=== PATIENT | male | born 1945 | race Caucasian/White ===

== ENCOUNTER 2016-10-26 17:02 | Inpatient (IN) ==
[2016-10-26 18:01] LABS: Basophils % 1.3 %; Eosinophils % 0.8 %; Hematocrit 20.7 % (37.5-50.1); Hemoglobin 6.6 g/dL (12.9-16.9); Immature Granulocytes % 0.2 % (0-4); Lymphocytes % 27.9 %; Mean Corpuscular HGB Conc 31.9 g/dL (31.6-35.5); Mean Corpuscular Hemoglobin 34.9 pg (28.0-33.3); Mean Corpuscular Volume 109.5 fL (83.0-100.0); Mean Platelet Volume 9.7 fL (9.4-12.4); Monocytes % 18.1 %; Platelet Count 101 K/mcL (140-400); Red Blood Count 1.89 M/mcL (4.19-5.50); Red Cell Distribution Width 16.7 % (11.5-14.5); Segmented Neutrophils % 51.7 %
[2016-10-26 18:02] LABS: Basophils # 0.1 K/mcL (0.0-0.2); Lymphocytes # 1.3 K/mcL (0.6-4.6); Monocytes # 0.9 K/mcL (0.0-1.3); Neutrophils # 2.5 K/mcL (1.6-8.9)
[2016-10-26 18:15] LABS: Albumin/Globulin Ratio 0.5 (1.1-2.2); Bilirubin,Total 0.4 mg/dL (0.2-1.2); Calcium 7.8 mg/dL (8.6-10.8); Globulin 3.7 g/dL (2.4-3.5); Total Protein 5.6 g/dL (6.0-8.3)
[2016-10-26 18:16] LABS: Albumin 1.9 g/dL (3.5-5.0)
--- NOTE | 2016-10-26 18:30 | Emergency Department Note ---
Disposition Clinical Impression: Hypokalemia Anemia Qualifiers: Anemia type: other cause Disposition: Home, Self-Care Condition: Good Recheck wound or abnormal lab - General Chief Complaint: ED Recheck/Abnormal Lab/Rx Stated Complaint: needs blood transfusion Time Seen by Provider: 10/26/16 17:21 Source: patient Limitations: no limitations Nursing Notes Reviewed: Yes Vital Signs Reviewed: Yes - History of Present Illness HPI Narrative: Patient presents with complaint of abnormal labs. Patient states that he had dialysis today and was told to come in December [facility] because his blood count was "critically low". Patient denies any symptoms denies shortness breath denies chest pain. Discussed with family at the bedside states that his skin color has been the same for approximate the past month but she feels as been getting worse. Patient states he has been weak but he states he is always weak. - Related Data Home Medications Medication Instructions Recorded Confirmed Amlodipine Besylate 5 mg PO BID 01/10/16 10/26/16 Aspirin [Adult Low Dose Aspirin EC] 81 mg PO Q48H 01/10/16 10/26/16 Calcium Acetate [Phos-LO] 667 mg PO QID 01/10/16 10/26/16 Carvedilol 25 mg PO BID 01/10/16 10/26/16 Citalopram Hydrobromide [Celexa] 40 mg PO DAILY 01/10/16 10/26/16 Finasteride 5 mg PO DAILY 01/10/16 10/26/16 Furosemide 80 mg PO BID 01/10/16 10/26/16 Simvastatin 20 mg PO DAILY 01/10/16 10/26/16 Tamsulosin HCl 0.4 mg PO DAILY 01/10/16 10/26/16 Albuterol Neb [Proventil Neb] 2.5 mg IH QID PRN 10/26/16 10/26/16 Epoetin Brandon [Procrit] 10,000 unit SQ MOWEFR 10/26/16 10/26/16 Guaifenesin [Mucinex] 600 mg PO Q12H 10/26/16 10/26/16 Ipratropium/Albuterol Neb [Duoneb] 3 ml IH Q6HR PRN 10/26/16 10/26/16 Lactose-Reduced Food [Ensure 1 bottle PO TID 10/26/16 10/26/16 Active Clear] Metoclopramide [Reglan] 10 mg PO QIDAC 10/26/16 10/26/16 Omeprazole [PriLOSEC] 20 mg PO BID 10/26/16 10/26/16 Ondansetron HCl [Zofran] 4 mg PO Q6H PRN 10/26/16 10/26/16 Previous Rx's Medication Instructions Recorded Renal Vitamin [Renal Caps Softgel] 1 mg PO DAILY capsule 01/13/16 LORazepam [Ativan] 0.5 mg PO BID #30 tablet 01/21/16 Oxycodone HCl/Acetaminophen 1 tab PO QID PRN #30 tablet 01/21/16 [Percocet 5-325 mg Tablet] Famotidine [Pepcid] 40 mg PO DAILY #30 tablet 02/12/16 Allergies Allergy/AdvReac Type Severity Reaction Status Date / Time No Known Allergies Allergy Verified 10/26/16 18:37 All systems ED: reviewed and negative except as stated. Past Medical History - Past Medical History Source: patient Medical history: Reports: COPD, GERD, hyperlipidemia, hypertension, kidney stones, renal disease, other Surgical history: Reports: orthopedic, other, other Psychiatric history: Reports: no psych history - Social History Smoking Status: Current every day smoker Smokeless Tobacco Status: No Alcohol use: Reports: none Drug use: Reports: none Physical Exam - General Limitations: no limitations General appearance: alert, in no apparent distress - Head Head exam: atraumatic, normocephalic, normal inspection - Eye Eye exam: Present: normal appearance, PERRL, EOMI - ENT ENT exam: normal exam, normal oropharynx, mucous membranes moist - Neck Neck exam: Present: normal inspection, full ROM, trachea midline - Chest Chest inspection: Present: normal inspection, symmetric chest wall rise - Respiratory Respiratory exam: Present: normal lung sounds bilaterally - Cardiovascular Cardiovascular exam: Present: regular rate, normal rhythm, normal heart sounds - Abdominal Exam Abdominal exam: Present: soft, Non-Tender. Absent: tenderness, distention, guarding, rebound, rigidity - Extremities Exam Extremities exam: Present: normal inspection, full ROM. Absent: tenderness, pedal edema - Back Exam Back exam: Present: normal inspection, full ROM. Absent: tenderness - Neurological Exam Neurological exam: Present: alert, oriented X3 - Psychiatric Psychiatric exam: Present: normal affect, normal mood - Skin Skin exam: Present: dry, intact, pallor Course Vital Signs Temperature 97.8 F 10/26/16 17:09 Pulse Rate 69 10/26/16 17:09 Respiratory Rate 16 10/26/16 17:09 Blood Pressure 115/71 10/26/16 17:09 O2 Sat by Pulse Oximetry 96 10/26/16 17:09 Temperature 97.5 F L 10/26/16 19:35 Pulse Rate 71 10/26/16 19:35 Respiratory Rate 12 10/26/16 19:35 Blood Pressure 133/99 10/26/16 19:35 O2 Sat by Pulse Oximetry 97 10/26/16 18:02 Oxygen Delivery Oxygen Delivery Room Air Recheck wound or abnormal lab - MDM Narrative Medical decision making narrative: Stool guaiac was negative. I discussed this patient with Dr. Crowell and Dr. mcduffie. He will be both available for consult on this patient. - Medical Records Medical records reviewed: Yes I reviewed the patient's medical records. - Lab Data Lab results reviewed: Yes I reviewed the patient's lab results. Result diagrams: 10/26/16 17:38 10/26/16 17:38 Lab Results 10/26/16 10/26/16 10/26/16 Range/Units 17:38 17:38 17:38 WBC 4.8 (4.3-11.1) K/mcL RBC 1.89 L (4.19-5.50) M/mcL Hgb 6.6 L (12.9-16.9) g/dL Hct 20.7 L (37.5-50.1) % MCV 109.5 H (83.0-100.0) fL MCH 34.9 H (28.0-33.3) pg MCHC 31.9 (31.6-35.5) g/dL RDW 16.7 H (11.5-14.5) % Plt Count 101 L (140-400) K/mcL MPV 9.7 (9.4-12.4) fL Immature Gran % 0.2 (0-4) % Seg Neutrophils % 51.7 % Lymphocytes % 27.9 % Monocytes % 18.1 % Eosinophils % 0.8 % Basophils % 1.3 % Neutrophils # 2.5 (1.6-8.9) K/mcL Lymphocytes # 1.3 (0.6-4.6) K/mcL Monocytes # 0.9 (0.0-1.3) K/mcL Eosinophils # 0.0 (0.0-0.6) K/mcL Basophils # 0.1 (0.0-0.2) K/mcL Hypochromasia Present A (Not Present) Anisocytosis 1+ A (Not Present) Sodium 141 (136-145) mEq/L Potassium 3.0 L (3.5-4.5) mEq/L Chloride 103 (98-109) mEq/L Carbon Dioxide 31 H (19-29) mEq/L BUN 10 (8-26) mg/dL Creatinine 2.08 H (0.72-1.25) mg/dL Est GFR ( Amer) 38 L (> 60) Est GFR (Non-Af Amer) 32 L (> 60) BUN/Creatinine Ratio 5 L (6-26) Glucose 98 (70-99) mg/dL Calculated Osmolality 291 (280-300) Calcium 7.8 L (8.6-10.8) mg/dL Total Bilirubin 0.4 (0.2-1.2) mg/dL AST 17 (5-34) Units/L ALT 8 (0-55) Units/L Alkaline Phosphatase 114 (38-126) Units/L Serum Total Protein 5.6 L (6.0-8.3) g/dL Albumin 1.9 L (3.5-5.0) g/dL Globulin 3.7 H (2.4-3.5) g/dL Albumin/Globulin Ratio 0.5 L (1.1-2.2) Blood Type O NEGATIVE Antibody Screen NEGATIVE Crossmatch See Detail - Radiology Data Radiology results reviewed: Yes I reviewed the patient's radiology results. Attestation Statement - Attestation Attestation: Critical care performed: Time is exclusive of separately billable procedures. Time includes: direct patient care, patient reassessment, coordination of patient care, interpretation of data (laboratory data, radiology data, and respiratory data), review of patient's medical records, medical consultation and documentation of patient care. Procedures included in critical care time: Procedures excluded from critical care time:
[2016-10-26 18:35] LABS: Anisocytosis 1+ (Not Present)
[2016-10-26 18:36] LABS: Hypochromasia Present (Not Present)
[2016-10-26] MEDS ORDERED: 0.9 % Sodium Chloride 1,000 ML ONE (18:58)
[2016-10-26] MEDS ORDERED: Acetaminophen 325 MG TABLET PO PRN (21:16)
[2016-10-26] MEDS ORDERED: Naloxone 0.4 MG/ML INJ IVP PRN (21:16)
[2016-10-26] MEDS ORDERED: Ipratropium/Albuterol Neb 3 ML IH PRN (21:20)
[2016-10-26] MEDS ORDERED: Ondansetron ODT 4 MG TAB.RAPDIS SL PRN (21:27)
--- NOTE | 2016-10-26 21:31 | Internal Med History&Physical ---
Date of Encounter: 10/26/16 Time of Encounter: 21:31 Assessment and Plan (1) Anemia Current visit: Yes Status: Acute Hgb 6.6 today down from previous value of 9. Patient denies black or bloody stools, or other bleeding. FOBT negative today, though reportedly positive 2 weeks ago. ESRD on HD MWF. Suspect possible GI bleed. Hold aspirin 1 unit PRBCs Check CBC q8hr Protonix drip Consult to Surgery (Dr. Caputo) for EGD/Colonoscopy Qualifiers: Anemia type: iron deficiency Iron deficiency anemia type: chronic blood loss Qualified Code(s): D50.0 - Iron deficiency anemia secondary to blood loss (chronic) (2) Weight loss Current visit: Yes Status: Acute Patient Cachexic on exam, reports weight loss of 30-40 lbs in last 6 months. Continues to smoke 1PPD. PET CT in 09/2015 for suspicious Left upper lobe lung lesion showed no increased metabolic activity and likely represented scarring and recommended yearly surveillance. Colonoscopy as part of work up will screen for colorectal malignancy [facility] Consult to Nutrition recommend outpatient follow up with PCP for cancer screening and surveillance (3) Chronic obstructive pulmonary disease Current visit: Yes Status: Acute Patient denies any cough or sputum production. Lungs clear. Scheduled duonebs. Qualifiers: COPD type: emphysema Emphysema type: unspecified Qualified Code(s): J43.9 - Emphysema, unspecified (4) ESRD on dialysis Current visit: No Status: Chronic Had dialysis today. Dry weight reportedly 49kg Consult to Nephrology (Dr. Montemayor) to assess need for dialysis after administration of blood products. (5) DVT prophylaxis Current visit: No Status: Acute ambulate with assist. ant-embolic stockings pharmacologic prophylaxis contraindicated in suspected bleed. Internal Medicine - H&P: HPI Chief complaint: anemia Admitted From: Home Plans for Post Hospital Care: Home History of present illness: Mr. Martinez is a 71 year old male with history of ESRD on HD MWF, COPD, HTN, who presented to the ED on the advice of his dialysis center today after his Hgb from labs today came back at 6.6. He reports he has felt shortness of breath and lightheaded lately. He denies any black or bloody stools, bloody urine, or other bleeding. He denies palpitations, chest pain, headache, or syncope. His reports that a 3 day stool guiac test done a couple weeks ago through dialysis came back positive, though the fecal occult blood test in the ED today was negative. The patient had dialysis today, and reports his dry weight at 49 kilograms, and he does not produce much urine. The ED spoke with patient's ship superintendent, Dr. Montemayor, who said it would be alright for patient to receive blood transfusion without needing dialysis tonight. Dr. Caputo, the surgeon was also consulted to assist in evaluating for GI bleed with EGD and colonoscopy. On exam, the patient is alert and oriented, cachexic, chronically ill appearing. Heart has regular rate and rhythm, satting 95% on RA. Lungs sound clear bilaterally. Past Med Surg Social Fam HX - Past Medical History Medical history: COPD, GERD, hyperlipidemia, hypertension, kidney stones, renal disease, other Psychiatric history: no psych history - Past Surgical History Surgical History: orthopedic, other (hip fracture, back surgery), transplant ( kidney transplant 1969), other (bilateral [place] nephrectomy) - Social History Smoking Status: Current every day smoker Packs per day: 1 Smokeless Tobacco Status: No Alcohol use: none Drug use: none Current living situation: Home, With Family - Family History Mother Living Status: Father Living Status: Hx Family Cardiac Disorders: Yes Internal Medicine - H&P: Meds Amlodipine Besylate 5 mg PO BID 01/10/16 [History] Aspirin [Adult Low Dose Aspirin EC] 81 mg PO Q48H 01/10/16 [History] Calcium Acetate [Phos-LO] 667 mg PO QID 01/10/16 [History] Carvedilol 25 mg PO BID 01/10/16 [History] Citalopram Hydrobromide [Celexa] 40 mg PO DAILY 01/10/16 [History] Finasteride 5 mg PO DAILY 01/10/16 [History] Furosemide 80 mg PO BID 01/10/16 [History] Simvastatin 20 mg PO DAILY 01/10/16 [History] Tamsulosin HCl 0.4 mg PO DAILY 01/10/16 [History] Renal Vitamin [Renal Caps Softgel] 1 mg PO DAILY capsule 01/13/16 [Rx] LORazepam [Ativan] 0.5 mg PO BID #30 tablet 01/21/16 [Rx] Oxycodone HCl/Acetaminophen [Percocet 5-325 mg Tablet] 1 tab PO QID PRN #30 tablet 01/21/16 [Rx] Famotidine [Pepcid] 40 mg PO DAILY #30 tablet 02/12/16 [Rx] Albuterol Neb [Proventil Neb] 2.5 mg IH QID PRN 10/26/16 [History] Epoetin Brandon [Procrit] 10,000 unit SQ MOWEFR 10/26/16 [History] Guaifenesin [Mucinex] 600 mg PO Q12H 10/26/16 [History] Ipratropium/Albuterol Neb [Duoneb] 3 ml IH Q6HR PRN 10/26/16 [History] Lactose-Reduced Food [Ensure Active Clear] 1 bottle PO TID 10/26/16 [History] Metoclopramide [Reglan] 10 mg PO QIDAC 10/26/16 [History] Omeprazole [PriLOSEC] 20 mg PO BID 10/26/16 [History] Ondansetron HCl [Zofran] 4 mg PO Q6H PRN 10/26/16 [History] Allergies No Known Allergies Allergy (Verified 10/26/16 18:37) All Systems PM: A 10-system review of systems was performed and is negative for pertinent findings except as documented above in the HPI. - Constitutional Constitutional: anorexia, weakness, weight loss, no chills, no fever(s), no night sweats - EENT Eyes: no change in vision, no discharge, no pain, no photophobia - Cardiovascular Cardiovascular ROS IM: dyspnea, lightheadedness, no chest pain, no diaphoresis, no palpitations, no syncope - Respiratory Respiratory: dyspnea, no cough, no wheezing, no excessive phlegm production - Gastrointestinal Gastrointestinal: no abdominal pain, no change in bowel habits, no change in stool character, no diarrhea, no hematemesis, no hematochezia, no melena, no nausea, no vomiting - Genitourinary Additional comments: minimal urine output - Musculoskeletal Musculoskeletal ROS IM: no numbness, no tingling - Integumentary Integumentary IM: no rash, no unusual bruising - Neurological Neurological ROS: no confusion, no convulsions, no focal weakness, no numbness, no tingling, no tremor(s) - Hematologic/Lymphatic Hematologic/Lymphatic: easy bruising - Constitutional Vitals: Temp Pulse Resp BP Pulse Ox 97.5 F L 71 12 141/85 97 10/26/16 19:35 10/26/16 19:35 10/26/16 20:57 10/26/16 20:57 10/26/16 18:02 General appearance: Present: cachectic, A&O X 3, no acute distress - Head Head exam: Present: atraumatic, normocephalic - Eye Eye exam: Present: PERRL, conjuntiva pink, sclera anicteric Pupils: Present: PERRL - Neck Neck exam general surgery: Present: supple, trachea midline. Absent: lymphadenopathy - Respiratory Respiratory exam: Present: CTAB. Absent: accessory muscle use, rales, rhonchi, wheezes - Cardiovascular Cardiovascular exam: Present: RRR, +S1, +S2. Absent: diastolic murmur, gallop, rubs, systolic murmur - GI/Abdominal GI/Abdominal exam: Present: normal bowel sounds, soft, no peritoneal signs. Absent: distended, tenderness - Extremities Exam Extremities exam: Present: pedal edema (Left > right, reportedly chronic), warm , radial pulses palpable and symetrical. Absent: calf tenderness, cyanotic Additional comments: LUE AV fistula +bruit/+thrill - Neurological Exam Neurological exam: Present: CN II-XII intact, oriented X3, no focal deficits. Absent: facial droop, speech deficit - Skin Skin exam: Present: dry, intact, pallor Internal Med - H&P Results - Labs CBC & Chem 7: 10/26/16 17:38 10/26/16 17:38
--- NOTE | 2016-10-26 21:40 | Event Note ---
Date of Encounter: 10/26/16 Time of Encounter: 21:37 Patient seen and examined. End-stage renal disease patient presents after he was found to have a hemoglobin of 6.6 and his baseline is around 9. He had fecal occult blood testing 2 weeks ago and was positive. Patient probably had an event of G.I. bleeding. However he did not recognize any hematomas as melena or hematochezia. He is an aspirin but no Plavix no other anticoagulant medication. Last bleeding episode was in January of this year during which endoscopy did not show any source of bleeding. Patients will be admitted to the hospital he will be started on Protonix strip. One unitl blood transfusion only will be given. Follow H&H. Dr. mcduffie has been notified about the patient and will follow him and hospital. Patient will need endoscopy as well as colonoscopy because of significant weight loss. He had lost 30 pounds during the past 6 months. Declining appetite and poor functional capacity so cancer will have to be ruled out. He has also received the pet scan as an outpatient for suspicious lung lesion and showed no increased activity. Check carcino embryonic antigen. Outpatient follow-up with PCP or cancer screening. He is hemodynamically stable. Full code
[2016-10-26] MEDS: *HR* HYDROcodone/Acet 5/325 mg TABLET PO PRN (22:34)
[2016-10-26] MEDS: Pantoprazole 40 MG in 0.9 % Sodium Chloride Mini Bag 100 ML IVC SCH (22:36)
[2016-10-27 00:35] LABS: Basophils # 0.1 K/mcL (0.0-0.2); Basophils % 1.3 %; Eosinophils # 0.1 K/mcL (0.0-0.6); Eosinophils % 1.3 %; Hemoglobin 8.1 g/dL (12.9-16.9); Immature Granulocytes % 0.4 % (0-4); Immature Platelets 2.5 % (1.1-6.1); Lymphocytes # 1.3 K/mcL (0.6-4.6); Lymphocytes % 27.2 %; Mean Corpuscular HGB Conc 32.4 g/dL (31.6-35.5); Mean Corpuscular Hemoglobin 33.1 pg (28.0-33.3); Mean Platelet Volume 9.2 fL (9.4-12.4); Monocytes # 0.8 K/mcL (0.0-1.3); Monocytes % 17.9 %; Neutrophils # 2.4 K/mcL (1.6-8.9); Platelet Count 110 K/mcL (140-400); Red Blood Count 2.45 M/mcL (4.19-5.50); Red Cell Distribution Width 18.4 % (11.5-14.5); Segmented Neutrophils % 51.9 %
[2016-10-27 00:50] LABS: Platelet Estimate Decreased (Normal)
[2016-10-27 00:51] LABS: Anisocytosis 1+ (Not Present); Calcium 7.6 mg/dL (8.6-10.8); Macrocytosis Present (Not Present); Potassium 3.1 mEq/L (3.5-4.5)
[2016-10-27] MEDS: Pantoprazole 40 MG in 0.9 % Sodium Chloride Mini Bag 100 ML IVC SCH ×3 (05:12→12:35)
[2016-10-27] MEDS: Renal Vitamin 1 MG CAPSULE PO SCH (07:47)
[2016-10-27] MEDS: amLODIPine 5 MG TABLET PO SCH ×2 (07:47→21:50)
[2016-10-27] MEDS: Furosemide 40 MG TABLET PO SCH ×2 (07:48→21:49)
[2016-10-27] MEDS: Calcium Acetate 667 MG CAPSULE PO SCH ×4 (07:48→21:50)
[2016-10-27] MEDS: Finasteride 5 MG TABLET PO SCH (07:49)
[2016-10-27] MEDS: *HR* LORazepam 0.5 MG TABLET PO PRN (07:55)
[2016-10-27 08:16] LABS: Basophils # 0.1 K/mcL (0.0-0.2); Basophils % 1.2 %; Eosinophils # 0.1 K/mcL (0.0-0.6); Eosinophils % 1.4 %; Hematocrit 23.7 % (37.5-50.1); Hemoglobin 7.7 g/dL (12.9-16.9); Immature Granulocytes % 0.4 % (0-4); Lymphocytes # 1.5 K/mcL (0.6-4.6); Lymphocytes % 31.3 %; Mean Corpuscular HGB Conc 32.5 g/dL (31.6-35.5); Mean Corpuscular Hemoglobin 33.2 pg (28.0-33.3); Mean Corpuscular Volume 102.2 fL (83.0-100.0); Mean Platelet Volume 9.2 fL (9.4-12.4); Monocytes # 0.8 K/mcL (0.0-1.3); Monocytes % 17.2 %; Neutrophils # 2.3 K/mcL (1.6-8.9); Red Blood Count 2.32 M/mcL (4.19-5.50); Red Cell Distribution Width 18.6 % (11.5-14.5); Segmented Neutrophils % 48.5 %
[2016-10-27 08:17] LABS: Platelet Count 85 K/mcL (140-400)
[2016-10-27 08:38] LABS: Platelet Estimate Decreased (Normal)
[2016-10-27 08:39] LABS: Anisocytosis 1+ (Not Present)
--- NOTE | 2016-10-27 08:41 | Nephrology Consult Note ---
Date of Encounter: 10/27/16 Time of Encounter: 08:15 Assessment and Plan (1) ESRD on dialysis Current Visit: No Status: Chronic Most likely blood loss anemia with history of positive guiac two weeks ago. Dr. Caputo consulted. Hgb 8.1 following one unit PRBC's. HD tomorrow, keeping MWF schedule. History of Present Illness - Reason for Consult end stage renal disease - History of Present Illness Mr. Martinez is a 71 year old male with ESRD who dialyzes MWF at [place]. Last HD yesterday. Other PMH COPD, HTN, HLD, failed renal transplant, GERD. Mr. Martinez presented to ER for outpatient Hgb 6.9 and 6.6 on redraw in ER. In outpatient dialysis Mr. Martinez Hgb was declining although on high dose Aranesp. He also had positive guiac and is scheduled for outpatient endoscopy Nov [address] Caputo. He was advised earlier in week to go to hospital for blood transfusion and declined. He denies hemeemesis, diarrhea, melena or hematochezia.. Mr. Martinez has also lost 30-40# in past six months with increasing weakness. Also has SHELLY lung nodule, last PET scan 09/2015 showed no change. Received one unit PRBC last night. Current Hgb 8.1. Past Med Surg Social Fam HX - Past Medical History Medical history: COPD, GERD, hyperlipidemia, hypertension, kidney stones, renal disease, other Psychiatric history: no psych history - Past Surgical History Surgical History: orthopedic, other (hip fracture, back surgery), transplant ( kidney transplant 1969), other (bilateral [place] nephrectomy) - Social History Smoking Status: Current every day smoker Packs per day: 1 Smokeless Tobacco Status: No Alcohol use: none Drug use: none - Family History Mother Living Status: Hx Family Cancer: Yes Father Living Status: Hx Family Cardiac Disorders: Yes Medications and Allergies Amlodipine Besylate 5 mg PO BID 01/10/16 [History] Aspirin [Adult Low Dose Aspirin EC] 81 mg PO Q48H 01/10/16 [History] Calcium Acetate [Phos-LO] 667 mg PO QID 01/10/16 [History] Carvedilol 25 mg PO BID 01/10/16 [History] Citalopram Hydrobromide [Celexa] 40 mg PO DAILY 01/10/16 [History] Finasteride 5 mg PO DAILY 01/10/16 [History] Furosemide 80 mg PO BID 01/10/16 [History] Simvastatin 20 mg PO DAILY 01/10/16 [History] Tamsulosin HCl 0.4 mg PO DAILY 01/10/16 [History] Renal Vitamin [Renal Caps Softgel] 1 mg PO DAILY capsule 01/13/16 [Rx] LORazepam [Ativan] 0.5 mg PO BID #30 tablet 01/21/16 [Rx] Oxycodone HCl/Acetaminophen [Percocet 5-325 mg Tablet] 1 tab PO QID PRN #30 tablet 01/21/16 [Rx] Famotidine [Pepcid] 40 mg PO DAILY #30 tablet 02/12/16 [Rx] Albuterol Neb [Proventil Neb] 2.5 mg IH QID PRN 10/26/16 [History] Epoetin Brandon [Procrit] 10,000 unit SQ MOWEFR 10/26/16 [History] Guaifenesin [Mucinex] 600 mg PO Q12H 10/26/16 [History] Ipratropium/Albuterol Neb [Duoneb] 3 ml IH Q6HR PRN 10/26/16 [History] Lactose-Reduced Food [Ensure Active Clear] 1 bottle PO TID 10/26/16 [History] Metoclopramide [Reglan] 10 mg PO QIDAC 10/26/16 [History] Omeprazole [PriLOSEC] 20 mg PO BID 10/26/16 [History] Ondansetron HCl [Zofran] 4 mg PO Q6H PRN 10/26/16 [History] Allergies No Known Allergies Allergy (Verified 10/26/16 18:37) Review of Systems All Systems: reviewed and no additional remarkable complaints except as stated Exam - Vital Signs Vital signs: Initial Vital Signs Temp Pulse Resp BP Pulse Ox 97.8 F 69 16 115/71 96 10/26/16 17:09 10/26/16 17:09 10/26/16 17:09 10/26/16 17:09 10/26/16 17:09 Vital Signs - Last 8 Hours Temp Pulse Resp BP Pulse Ox 10/27/16 07:39 97.6 F 75 18 134/73 98 - General Appearance General appearance: cachectic, chronically ill EENT: mucous membranes moist Neck: no JVD, no carotid bruit Respiratory: clear Cardiology: no edema, regular rate, regular rhythm Gastrointestinal: normoactive bowel sounds, no tenderness, no guarding, no organomegaly Integumentary: warm and dry Additional Comments: bronzed coloring Neurologic: alert and oriented x3 Psychiatric: mood/affect appropriate, cooperative Results - Lab Results 10/27/16 08:09 10/27/16 00:22 Most recent lab results Calcium 7.6 mg/dL (8.6-10.8) L 10/27/16 00:22 Consult Discharge Plan - Plan Referrals: Neil Sapp Jr, MD [Primary Care Provider] -
[2016-10-27] MEDS ORDERED: *HR* LORazepam 0.5 MG TABLET PO SCH (09:00)
[2016-10-27 12:33] LABS: % Iron Saturation 30 % (20-55); Iron 22 mcg/dL (65-175); Transferrin 52 mg/dL (174-364)
[2016-10-27] MEDS ORDERED: D5% in 0.45% NACL 250 ML IVC SCH (12:45)
[2016-10-27 13:14] LABS: Folate 19.8 ng/mL (7.0-31.4)
[2016-10-27] MEDS: D5% in 0.45% NACL 250 ML IVC SCH ×2 (13:25→13:51)
--- NOTE | 2016-10-27 14:34 | Electrocardiograph Report ---
[facility] Test Date: 2016-10-26 Pat Name: Magan Martinez Department: 104 Room: 2A31 Gender: M Product Demonstrator: [facility] : 1945 Requested By: Alfredo Hannon Order Number: [id number] Reading MD: Solomon Kendrick Measurements Intervals Fence Rate: 71 P: 66 [place]: 147 QRS: 27 QRSD: 114 T: 81 QT: 455 QTc: 478 Interpretive Statements SINUS RHYTHM POSSIBLE LEFT VENTRICULAR HYPERTROPHY MODERATE T-WAVE ABNORMALITY, CONSIDER ANTERIOR ISCHEMIA Electronically Signed On 10-27-16 14:33:32 EST by Solomon Kendrick
--- NOTE | 2016-10-27 14:58 | Internal Med Progress Note ---
Date of Encounter: 10/27/16 Time of Encounter: 14:55 - Assessment and plan (1) Anemia Current Visit: Yes Status: Acute Assessment and plan: Extended positive on guaiac 2 weeks ago at hemodialysis as outpatient. Was noted to have drop in hemoglobin of 6.6 from 9. Denies any hematemesis or melena at this time. Status post 1 unit of blood transfusion last night, repeat hemoglobin at 7.7 today. Suspect possible GI bleed. If negative may have anemia of chronic disease. Iron panel and B12 and folate levels are within normal limits. Patient planned for endoscopy/colonoscopy with Dr. mcduffie today. Continue the Protonix every 12 and monitor his CBC. 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 Lungs clear. Scheduled duonebs. Qualifiers: COPD type: emphysema Emphysema type: unspecified Qualified Code(s): J43.9 - Emphysema, unspecified (3) Weight loss Current Visit: Yes Status: Acute Assessment and plan: Patient Cachexic on exam, reports weight loss of 30-40 lbs in last 6 months. Continues to smoke 1PPD. PET CT in 09/2015 for suspicious Left upper lobe lung lesion showed no increased metabolic activity and likely represented scarring and recommended yearly surveillance. Colonoscopy as part of work up will screen for colorectal malignancy CEA is <5 Consult to Nutrition, may add megase after EGD. recommend outpatient follow up with PCP for cancer screening and surveillance (4) ESRD on dialysis Current Visit: No Status: Chronic Assessment and plan: Nephrology following, planned for Dialysis tomorrow. - Time Spent With Patient 25 - 35 minutes - Subjective Interval history: Patient seen at the bedside, appears cachectic. He denies any abdominal pain, nausea or vomiting at this time. Admitted for drop in hemoglobin, plan for EGD today with Dr. Mcduffie. Tested positive for guaiac 2 weeks ago as outpatient. - Constitutional Vitals: Temp Pulse Resp BP Pulse Ox 98.0 F 76 20 125/73 98 10/27/16 11:33 10/27/16 11:33 10/27/16 11:33 10/27/16 11:33 10/27/16 11:33 General appearance: Present: cachectic, A&O X 3, no acute distress Exam: General appearance: Present: cachectic, A&O X 3, no acute distress - Head Head exam: Present: atraumatic, normocephalic - Eye Eye exam: Present: PERRL, conjuntiva pink, sclera anicteric Pupils: Present: PERRL - Neck Neck exam general surgery: Present: supple, trachea midline. Absent: lymphadenopathy - Respiratory Respiratory exam: Present: CTAB. Absent: accessory muscle use, rales, rhonchi, wheezes - Cardiovascular Cardiovascular exam: Present: RRR, +S1, +S2. Absent: diastolic murmur, gallop, rubs, systolic murmur - GI/Abdominal GI/Abdominal exam: Present: normal bowel sounds, soft, no peritoneal signs. Absent: distended, tenderness - Extremities Exam Extremities exam: Present: pedal edema (Left > right, reportedly chronic), warm , radial pulses palpable and symetrical. Absent: calf tenderness, cyanotic Additional comments: LUE AV fistula +bruit/+thrill - Neurological Exam Neurological exam: Present: CN II-XII intact, oriented X3, no focal deficits. Absent: facial droop, speech deficit - Skin Skin exam: Present: dry, intact, pallor Internal Medicine: Result - Labs CBC & Chem 7: 10/27/16 08:09 10/27/16 00:22 Labs: Short CBC 10/27/16 Range/Units 08:09 WBC 4.8 (4.3-11.1) K/mcL Hgb 7.7 L (12.9-16.9) g/dL Hct 23.7 L (37.5-50.1) % Plt Count 85 L (140-400) K/mcL Neutrophils # 2.3 (1.6-8.9) K/mcL Consult Discharge Plan - Plan Referrals: Neil Sapp Jr, MD [Primary Care Provider] - 11/04/16 1:30 pm (please follow up as schedule)
[2016-10-27] MEDS ORDERED: *HR* Midazolam HCl 5 MG/5 ML VIAL IVP ONE (15:54)
[2016-10-27] MEDS ORDERED: *HR* FentaNYL (PF) 100 MCG/2 ML VIAL ONE (15:55)
[2016-10-27] MEDS ORDERED: Simethicone 40 MG/0.6 ML MLS IR ONE (16:58)
[2016-10-27] MEDS ORDERED: *HR* FentaNYL (PF) 100 MCG/2 ML VIAL IVP PRN (16:58)
[2016-10-27] MEDS ORDERED: *HR* Midazolam HCl 5 MG/5 ML VIAL IVP PRN (16:58)
[2016-10-27] MEDS ORDERED: 0.9 % Sodium Chloride 1,000 ML IVC SCH (17:00)
--- NOTE | 2016-10-27 17:02 | Pre-Sedation Evaluation ---
Pre-sedation evaluation - Pre-sedation checklist Date of procedure: 10/27/16 Procedure: EGD Recent Vitals: Last Vital Signs Temp 98.5 F 10/27/16 16:21 Pulse 71 10/27/16 16:26 Resp 18 10/27/16 16:26 BP 139/76 10/27/16 16:26 Pulse Ox 97 10/27/16 16:26 H&P (including ROS) documented in medical record: Yes Previous reaction to sedatives/anesthetics: Yes; explain in comment Dietary Status: Clear fluids after Midnight Airway Assessment: Patient can open mouth completely, TMJ function normal, Micrognathia (under-bite, receding chin) absent, Neck with adequate range of motion Dentition: dentures removed Possible difficult airway: No ASA Classification *see protocol: CLASS III-Severe systemic disease Plan of Care: Pt appropriate candidate for procedure/moderate/conscious sedation , Risks/benefits of procedure/sedation discussed w/ patient/family, If not NPO; Risk of intake outweiged by necessity to perform procedure
--- NOTE | 2016-10-27 17:44 | General Surgery Consult Note ---
Date of Encounter: 10/27/16 Time of Encounter: 13:45 History of Present Illness Consult date: 10/27/16 Requesting physician: Briseida Landeros History of present illness: This is a delayed dictation: 71-year-old male made after presenting to the emergency department as recommended by his dialysis center for further evaluation and treatment of anemia. Hemoglobin was 6.6. The patient reported feeling shortness of breath and lightheadedness but he has had a significant bleed depressed hemoglobin/ hematocrit in the past. Past medical history is notable for end-stage renal disease requiring hemodialysis on Wednesdays and Fridays. He has steroid -dependent COPD, hypertension, chronic anemia, lipidemia, gastroesophageal reflux disease. The patient has experienced significant weight loss over the last The patient apparently has a history of renal cancer. He is status post right nephrectomy in 1968 followed by a left nephrectomy and renal transplant in 1969. He also has had back surgery in 1992. Since his renal transplant in 1969 his renal status has failed and now the patient requires hemodialysis. Patient was recently referred to me for further evaluation of Hemoccult- positive stool, however, on presentation to the emergency department he was profoundly anemic but his Hemoccult stool was negative. The patient has noted no blood per rectum no melena. The patient was recently admitted, January/2016, following a syncopal episode at the local rehabilitation center. The patient was found to be profoundly anemic described several days of black tarry stool. Hemoglobin at the time was 6.7 after transfusion 2 units packed cells. An EGD completed at that time demonstrated an irregular Z line at approximately 40 cm from the incisors, a E and sized hiatal hernia and nodular mucosa on the greater curvature of the gastric body. Duodenum was grossly normal. Biopsies demonstrated mild chronic gastritis. A colonoscopy had been planned but but not completed. A colonoscopy was scheduled through my office, April 2015, but canceled by the patient and not rescheduled. The patient continues to lose weight; approximately 40 pound weight loss from 05/2016 to present is reported. It has become more important that a colonoscopy completed and this was discussed in detail with the patient and his . Allergies: No known drug allergies Medications: Amlodipine 5 mg by mouth twice a day Aspirin 81 mg by mouth daily Calcium acetate (PhosLo) 667 mg 4 times a day Carvedilol 25 mg by mouth twice a day Finasteride 5 mg by mouth daily Citalopram 40 mg by mouth daily Furosemide 80 mg by mouth twice a day Simvastatin 20 mg by mouth daily Tamsulosin 0.4 mg by mouth daily Renal vitamin 1 mg by mouth daily Lorazepam 5 mg by mouth twice a day Oxycodone with acetaminophen 5/325 one by mouth 4 times a day as needed for pain Famotidine 40 mg by mouth daily Albuterol nebulizer 2.5 mg inhaled 4 times a day as needed for shortness of breath Epoetin brandon 10,000 units subcutaneous Monday Guaifenesin 600 mg by mouth every 12 hours Ipratropium/albuterol (DuoNeb) 3 mL inhaled every 6 hours as needed for shortness of breath Metoclopramide 10 mg by mouth 4 times a day with meals Omeprazole 20 mg by mouth twice a day Ondasetron 4 mg by mouth every 6 hours when necessary for nausea Social history: She lives at home with his spouse; continues to smoke approximately 1 pack per day for more than 50 years. The patient quit alcohol in the remote past he denies any illicit drug use. Physical examination: Thin, cachectic male who appears older than his stated age. He denies being in any acute distress. Current vital signs; patient is afebrile at 98.3, pulse is 72, respirations 18, blood pressure 122/67. SPO2 2 L nasal cannula 96-97% Lungs: Markedly diminished breath sounds no audible wheezes or rales Cardiac: Regular rate with no appreciable murmurs Abdomen: Soft, flat, nontender. No obvious intra-abdominal masses. No rebound. Impression: 71-year-old male admitted for further evaluation and treatment of profound anemia with weight loss. Hemoglobin on presentation 6.6, hematocrit 20.7, platelet count 101,000. After 1 unit of blood, hemoglobin 7.7, hematocrit 23.7, platelet count 85,000. The anemia is chronic and recurrent likely due to his significant renal disease. His weight loss is less readily explainable but the patient describes long history nausea and as a result eats very little. Last colonoscopy per hospital records, [address] Casey[address] Discussed at length with the patient and his spouse. EGD to be repeated today. Colonoscopy recommended during this hospital stay but will require mechanical bowel prep. The patient is reluctant to consider this but his wishes to proceed. If patient willing to proceed - colonoscopy can be arranged in the next few days. Past Med Surg Social Fam HX - Past Medical History Medical history: COPD, GERD, hyperlipidemia, hypertension, kidney stones, renal disease, other Psychiatric history: no psych history - Past Surgical History Surgical History: orthopedic, other, transplant, other - Social History Smoking Status: Current every day smoker Packs per day: 1 Smokeless Tobacco Status: No Alcohol use: none Drug use: none - Family History Mother Living Status: Hx Family Cancer: Yes Father Living Status: Hx Family Cardiac Disorders: Yes Medications and Allergies Amlodipine Besylate 5 mg PO BID 01/10/16 [History] Aspirin [Adult Low Dose Aspirin EC] 81 mg PO Q48H 01/10/16 [History] Calcium Acetate [Phos-LO] 667 mg PO QID 01/10/16 [History] Carvedilol 25 mg PO BID 01/10/16 [History] Citalopram Hydrobromide [Celexa] 40 mg PO DAILY 01/10/16 [History] Finasteride 5 mg PO DAILY 01/10/16 [History] Furosemide 80 mg PO BID 01/10/16 [History] Simvastatin 20 mg PO DAILY 01/10/16 [History] Tamsulosin HCl 0.4 mg PO DAILY 01/10/16 [History] Renal Vitamin [Renal Caps Softgel] 1 mg PO DAILY capsule 01/13/16 [Rx] LORazepam [Ativan] 0.5 mg PO BID #30 tablet 01/21/16 [Rx] Oxycodone HCl/Acetaminophen [Percocet 5-325 mg Tablet] 1 tab PO QID PRN #30 tablet 01/21/16 [Rx] Famotidine [Pepcid] 40 mg PO DAILY #30 tablet 02/12/16 [Rx] Albuterol Neb [Proventil Neb] 2.5 mg IH QID PRN 10/26/16 [History] Epoetin Brandon [Procrit] 10,000 unit SQ MOWEFR 10/26/16 [History] Guaifenesin [Mucinex] 600 mg PO Q12H 10/26/16 [History] Ipratropium/Albuterol Neb [Duoneb] 3 ml IH Q6HR PRN 10/26/16 [History] Lactose-Reduced Food [Ensure Active Clear] 1 bottle PO TID 10/26/16 [History] Metoclopramide [Reglan] 10 mg PO QIDAC 10/26/16 [History] Omeprazole [PriLOSEC] 20 mg PO BID 10/26/16 [History] Ondansetron HCl [Zofran] 4 mg PO Q6H PRN 10/26/16 [History] Allergies No Known Allergies Allergy (Verified 10/26/16 18:37) Review of Systems All systems PM: A 10-system review of systems was performed and is negative for pertinent findings except as documented above in the HPI. General Surgery Exam Initial Vital Signs Temp Pulse Resp BP Pulse Ox 97.8 F 69 16 115/71 96 10/26/16 17:09 10/26/16 17:09 10/26/16 17:09 10/26/16 17:09 10/26/16 17:09 Exam Initial Vital Signs Temp Pulse Resp BP Pulse Ox 97.8 F 69 16 115/71 96 10/26/16 17:09 10/26/16 17:09 10/26/16 17:09 10/26/16 17:09 10/26/16 17:09 Results - Labs 10/27/16 08:09 10/27/16 00:22 Abnormal lab results RBC 2.32 M/mcL (4.19-5.50) L 10/27/16 08:09 Hgb 7.7 g/dL (12.9-16.9) L 10/27/16 08:09 Hct 23.7 % (37.5-50.1) L 10/27/16 08:09 MCV 102.2 fL (83.0-100.0) H 10/27/16 08:09 RDW 18.6 % (11.5-14.5) H 10/27/16 08:09 Plt Count 85 K/mcL (140-400) L 10/27/16 08:09 MPV 9.2 fL (9.4-12.4) L 10/27/16 08:09 Platelet Estimate Decreased (Normal) L 10/27/16 08:09 Hypochromasia Present (Not Present) A 10/26/16 17:38 Anisocytosis 1+ (Not Present) A 10/27/16 08:09 Macrocytosis Present (Not Present) A 10/27/16 00:22 Potassium 3.1 mEq/L (3.5-4.5) L 10/27/16 00:22 Carbon Dioxide 31 mEq/L (19-29) H 10/27/16 00:22 Creatinine 2.33 mg/dL (0.72-1.25) H 10/27/16 00:22 Est GFR ( Amer) 34 (> 60) L 10/27/16 00:22 Est GFR (Non-Af Amer) 28 (> 60) L 10/27/16 00:22 BUN/Creatinine Ratio 5 (6-26) L 10/27/16 00:22 Calcium 7.6 mg/dL (8.6-10.8) L 10/27/16 00:22 Iron 22 mcg/dL (65-175) L 10/27/16 12:06 Transferrin 52 mg/dL (174-364) L 10/27/16 12:06 Serum Total Protein 5.6 g/dL (6.0-8.3) L 10/26/16 17:38 Albumin 1.9 g/dL (3.5-5.0) L 10/26/16 17:38 Globulin 3.7 g/dL (2.4-3.5) H 10/26/16 17:38 Albumin/Globulin Ratio 0.5 (1.1-2.2) L 10/26/16 17:38 All other labs normal. Consult Discharge Plan - Plan Referrals: Neil Sapp Jr, MD [Primary Care Provider] - 11/04/16 1:30 pm (please follow up as schedule)
[2016-10-27] MEDS ORDERED: *HR* Dextrose 50 % in Water (Syg) 50 ML SYRINGE ONE (17:46)
[2016-10-27] MEDS ORDERED: *HR* Dextrose 50 % in Water (Syg) 50 ML SYRINGE IVP ONE (17:50)
[2016-10-27] MEDS ORDERED: Tetracaine/Benzocaine/Butamben 200MG/SPRAY (100SPY/BOT) ONE (17:51)
[2016-10-27] MEDS: Pantoprazole 40 MG VIAL IVP SCH (18:14)
[2016-10-28 03:56] LABS: Mean Platelet Volume 9.7 fL (9.4-12.4)
[2016-10-28 03:58] LABS: Basophils # 0.1 K/mcL (0.0-0.2); Basophils % 0.8 %; Eosinophils % 0.3 %; Hemoglobin 8.4 g/dL (12.9-16.9); Immature Granulocytes % 0.9 % (0-4); Immature Platelets 2.6 % (1.1-6.1); Lymphocytes # 1.3 K/mcL (0.6-4.6); Lymphocytes % 16.7 %; Mean Corpuscular HGB Conc 32.3 g/dL (31.6-35.5); Mean Corpuscular Hemoglobin 33.3 pg (28.0-33.3); Mean Corpuscular Volume 103.2 fL (83.0-100.0); Monocytes # 0.9 K/mcL (0.0-1.3); Monocytes % 11.5 %; Platelet Count 110 K/mcL (140-400); Red Blood Count 2.52 M/mcL (4.19-5.50); Red Cell Distribution Width 18.2 % (11.5-14.5); Segmented Neutrophils % 69.8 %
[2016-10-28 03:59] LABS: Neutrophils # 5.4 K/mcL (1.6-8.9)
[2016-10-28 04:10] LABS: Calcium 7.9 mg/dL (8.6-10.8)
[2016-10-28 04:13] LABS: Potassium 4.4 mEq/L (3.5-4.5)
[2016-10-28] MEDS: Pantoprazole 40 MG VIAL IVP SCH ×2 (05:54→17:03)
[2016-10-28] MEDS: Finasteride 5 MG TABLET PO SCH (08:41)
[2016-10-28] MEDS: Renal Vitamin 1 MG CAPSULE PO SCH (08:41)
[2016-10-28] MEDS: Calcium Acetate 667 MG CAPSULE PO SCH (08:42)
[2016-10-28] MEDS: Furosemide 40 MG TABLET PO SCH ×2 (08:42→17:03)
[2016-10-28] MEDS ORDERED: 0.9 % Sodium Chloride 1,000 ML PRIME SCH (09:15)
[2016-10-28] MEDS ORDERED: 0.9 % Sodium Chloride 250 ML IV PRN (09:15)
--- NOTE | 2016-10-28 10:14 | Nephrology Progress Note ---
Date of Encounter: 10/28/16 Time of Encounter: 10:00 - Assessment and Plan (1) ESRD on dialysis Current Visit: No Status: Chronic HD today, keeping MWF schedule. Orders given. No bleed on EGD, biopsies done. Patient agreed to colonoscopy. Subjective Principal diagnosis: ESRD Interval history: Seen on HD. States feeling somewhat better. Had EGD yesterday. States having colonoscopy tomorrow Objective - Vital Signs Vital signs: Vital Signs Temp Pulse Resp BP Pulse Ox 10/28/16 06:52 97.8 F 70 19 130/75 96 10/28/16 04:08 97.8 F 75 16 127/77 95 10/27/16 23:27 99 F 70 18 127/74 98 10/27/16 17:54 97.6 F 69 16 117/67 96 10/27/16 17:29 98.3 F 70 18 123/72 92 L 10/27/16 17:15 98.3 F 72 18 122/67 97 10/27/16 17:11 75 18 134/73 97 10/27/16 17:06 73 18 129/70 93 L 10/27/16 17:01 72 18 117/65 97 10/27/16 16:26 71 18 139/76 97 10/27/16 16:21 98.5 F 75 20 142/75 88 L 10/27/16 11:33 98.0 F 76 20 125/73 98 Intake and Output 10/27/16 10/28/16 10/28/16 23:59 07:59 15:59 Intake Total 500 / 500 240 / 240 Output Total 0 / 0 Balance 500 / 500 240 / 240 Intake: IV Fluids 500 / 500 0.9 % Sodium Chloride 1, 500 / 500 000 ML @ 50 mls/hr IVC . Q20H [facility] Rx#:[id number] Oral 240 / 240 Output: Urine 0 / 0 Other: Meal Breakfast Percent of Meal Consumed 50% Weight 48.262 kg 48.4 kg Blood Glucose* 153 74 Patient Weight 10/28/16 23:59 Weight 48.4 kg - General Appearance General appearance: Present: cachectic EENT: Present: mucous membranes moist Neck: Present: no JVD Cardiology: Present: no edema, regular rate, regular rhythm Additional Comments: 2/6 systolic murmur Gastrointestinal: Present: hypoactive bowel sounds, no tenderness, no guarding Integumentary: Present: warm and dry Neurologic: Present: alert and oriented x3 Psychiatric: Present: mood/affect appropriate, cooperative - Lab 10/28/16 03:49 10/28/16 03:49 Most recent lab results Calcium 7.9 mg/dL (8.6-10.8) L 10/28/16 03:49 - VTE Documentation of Mechanical Device: Graduated compression elastic hosiery Consult Discharge Plan - Plan Referrals: Neil Sapp Jr, MD [Primary Care Provider] - 11/04/16 1:30 pm (please follow up as schedule)
--- NOTE | 2016-10-28 10:56 | General Surgery Progress Note ---
Date of Encounter: 10/28/16 Time of Encounter: 10:51 Subjective Patient reports: no new complaints Narrative: General Surgery: EGD completed last pm was well tolerated by the patient. He has no post - procedure complaints. The findings were fairly unremarkable. Biopsies Ge junction, antrum and duodenum are pending but no gross evidence of UGI hemorrhage was detected. No definitive source of anemia was identified in the esoph, stomach or duodenum. Discussed with patient, he is willing to undergo colonoscopy. This will be completed in AM Clear liquids today; mechanical bowel prep late afternoon /early evening. Risks of colonoscopy include hemorrhage, infection, cramping abd pain, bloating and perforation. Patient at increased respiratory risk due to his smoking history. Objective Vital Signs - Last 8 Hours Temp Pulse Resp BP Pulse Ox 10/28/16 10:30 146/76 10/28/16 10:15 139/78 10/28/16 10:00 97.8 F 18 137/76 10/28/16 06:52 97.8 F 70 19 130/75 96 10/28/16 04:08 97.8 F 75 16 127/77 95 Intake and Output 10/27/16 10/28/16 10/28/16 23:59 07:59 15:59 Intake Total 500 / 500 740 / 740 Output Total 0 / 0 Balance 500 / 500 740 / 740 Intake: IV Fluids 500 / 500 0.9 % Sodium Chloride 1, 500 / 500 000 ML @ 50 mls/hr IVC . Q20H [facility] Rx#:[id number] Oral 240 / 240 Intake, Rinseback and 500 / 500 Flushes Output: Urine 0 / 0 Other: Meal Breakfast Percent of Meal Consumed 50% Weight 48.262 kg 48.4 kg Blood Glucose* 153 74 Hemodialysis Net Fluid 168 Removed (mL) Patient Weight 10/28/16 23:59 Weight 48.4 kg - Labs 10/28/16 03:49 10/28/16 03:49 Diabetes panel 10/28/16 Range/Units 03:49 Sodium 140 (136-145) mEq/L Potassium 4.4 D (3.5-4.5) mEq/L Chloride 107 (98-109) mEq/L Carbon Dioxide 27 (19-29) mEq/L BUN 20 (8-26) mg/dL Creatinine 3.30 H (0.72-1.25) mg/dL Glucose 49 L (70-99) mg/dL Calcium 7.9 L (8.6-10.8) mg/dL Calcium panel 10/28/16 Range/Units 03:49 Calcium 7.9 L (8.6-10.8) mg/dL Pituitary panel 10/28/16 Range/Units 03:49 Sodium 140 (136-145) mEq/L Potassium 4.4 D (3.5-4.5) mEq/L Chloride 107 (98-109) mEq/L Carbon Dioxide 27 (19-29) mEq/L BUN 20 (8-26) mg/dL Creatinine 3.30 H (0.72-1.25) mg/dL Glucose 49 L (70-99) mg/dL Calcium 7.9 L (8.6-10.8) mg/dL Adrenal panel 10/28/16 Range/Units 03:49 Sodium 140 (136-145) mEq/L Potassium 4.4 D (3.5-4.5) mEq/L Chloride 107 (98-109) mEq/L Carbon Dioxide 27 (19-29) mEq/L BUN 20 (8-26) mg/dL Creatinine 3.30 H (0.72-1.25) mg/dL Glucose 49 L (70-99) mg/dL Calcium 7.9 L (8.6-10.8) mg/dL - VTE Documentation of Mechanical Device: Graduated compression elastic hosiery Consult Discharge Plan - Plan Referrals: Neil Sapp Jr, MD [Primary Care Provider] - 11/04/16 1:30 pm (please follow up as schedule)
[2016-10-28] MEDS ORDERED: Polyethylene Glycol 3350 255 GM POWDER PO ONE (10:58)
[2016-10-28] MEDS ORDERED: Ondansetron 4 MG/2 ML VIAL IVP PRN (11:00)
[2016-10-28] MEDS ORDERED: 0.9 % Sodium Chloride 2,000 ML ONE (11:49)
[2016-10-28] MEDS: *HR* LORazepam 0.5 MG TABLET PO PRN (12:26)
[2016-10-28] MEDS: amLODIPine 5 MG TABLET PO SCH ×2 (14:54→20:01)
[2016-10-28] MEDS: *HR* HYDROcodone/Acet 5/325 mg TABLET PO PRN (15:18)
--- NOTE | 2016-10-28 15:23 | Internal Med Progress Note ---
Date of Encounter: 10/28/16 Time of Encounter: 15:20 - Assessment and plan (1) Anemia Current Visit: Yes Status: Acute Assessment and plan: Extended positive on guaiac 2 weeks ago at hemodialysis as outpatient. Was noted to have drop in hemoglobin of 6.6 from 9. Denies any hematemesis or melena at this time. Status post 1 unit of blood transfusion last night, repeat hemoglobin at 8 today. Suspect possible GI bleed. If negative may have anemia of chronic disease. Iron panel and B12 and folate levels are within normal limits. EGD di dnot show any active bleeding, planned for colonoscopy tomm. Continue the Protonix every 12 and monitor his CBC. 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 had one episode of desaturation at HD, resolved after stopping HD, no new changes in the CXR. Scheduled duonebs. Qualifiers: COPD type: emphysema Emphysema type: unspecified Qualified Code(s): J43.9 - Emphysema, unspecified (3) Weight loss Current Visit: Yes Status: Acute Assessment and plan: Patient Cachexic on exam, reports weight loss of 30-40 lbs in last 6 months. Continues to smoke 1PPD. PET CT in 09/2015 for suspicious Left upper lobe lung lesion showed no increased metabolic activity and likely represented scarring and recommended yearly surveillance. Colonoscopy as part of work up will screen for colorectal malignancy CEA is <5 Consult to Nutrition, he did finish >50% of his BF. recommend outpatient follow up with PCP for cancer screening and surveillance (4) ESRD on dialysis Current Visit: No Status: Chronic Assessment and plan: Nephrology following, Dialysis today. - Time Spent With Patient 25 - 35 minutes - Subjective Interval history: Patient seen at the bedside, appears cachectic. He denies any abdominal pain, nausea or vomiting at this time. Admitted for drop in hemoglobin, EGD yesterday did not show any evidence of bleeding. planned for colonoscopy tomm. at the HD towrds the end, he was sob, CXR was done that showed that showed similar findings as compared to previous. he was transiently placed on NRB and he was back to baseline after HD was stopped. - Constitutional Vitals: Temp Pulse Resp BP Pulse Ox 97.8 F 70 24 151/88 96 10/28/16 12:45 10/28/16 06:52 10/28/16 12:45 10/28/16 12:45 10/28/16 06:52 General appearance: Present: cachectic, A&O X 3, no acute distress Exam: neck- supple chest- mild coarse creptnn on the right side, no wheezing cvs-s1 and s2, no m/r/g abd-soft, non tender, bs are present ext- veronica stefano Internal Medicine: Result - Labs CBC & Chem 7: 10/28/16 03:49 10/28/16 03:49 Labs: Short CBC 10/28/16 Range/Units 03:49 WBC 7.8 D (4.3-11.1) K/mcL Hgb 8.4 L (12.9-16.9) g/dL Hct 26.0 L (37.5-50.1) % Plt Count 110 L (140-400) K/mcL Neutrophils # 5.4 (1.6-8.9) K/mcL BMP 10/28/16 03:49 Sodium 140 Potassium 4.4 D Chloride 107 Carbon Dioxide 27 BUN 20 Creatinine 3.30 H Glucose 49 L Calcium 7.9 L - Impressions Impressions Chest X-Ray 10/28/16 12:49 IMPRESSION: Moderate bilateral pleural effusions with bibasilar atelectasis versus pneumonia. D/ / Clarisse Gautam MD / Clarisse Gautam MD Interpreting Provider: Clarisse Gautam MD - VTE Documentation of Mechanical Device: Graduated compression elastic hosiery Consult Discharge Plan - Plan Referrals: Neil Sapp Jr, MD [Primary Care Provider] - 11/04/16 1:30 pm (please follow up as schedule)
[2016-10-28] MEDS ORDERED: *HR* Dextrose 50 % in Water (Syg) 50 ML SYRINGE ONE (16:57)
[2016-10-28] MEDS ORDERED: Furosemide 100 MG/10 ML VIAL ONE (20:59)
[2016-10-28] MEDS ORDERED: Furosemide 20 MG/2 ML VIAL IVP ONE (21:07)
[2016-10-28 21:21] LABS: ABG Base Excess 2.8 mEq/L (-2.0 to 3.0); ABG HCO3 32.4 mEQ/L (21-27); ABG Oxygen Saturation 95 % (95-98); ABG PO2 95 mmHg (85-104); ABG TCO2 35.2 mEq/L (20-26); Blood Gas FiO2 100 %
[2016-10-28 21:23] LABS: ABG PH 7.16 pH Units (7.32-7.45)
[2016-10-28 21:24] LABS: ABG PCO2 91 mmHg (35-45)
[2016-10-28] MEDS ORDERED: *HR* Dextrose 50 % in Water (Syg) 50 ML SYRINGE IVP ONE (23:35)
[2016-10-29 00:32] LABS: ABG Base Excess 6.6 mEq/L (-2.0 to 3.0); ABG HCO3 33.2 mEQ/L (21-27); ABG Oxygen Saturation 83 % (95-98); ABG PCO2 63 mmHg (35-45); ABG PH 7.33 pH Units (7.32-7.45); ABG PO2 51 mmHg (85-104); ABG TCO2 35.1 mEq/L (20-26)
[2016-10-29 00:33] LABS: Blood Gas FiO2 35 %
[2016-10-29] MEDS ORDERED: D5% in Water 1,000 ML IVC SCH (04:00)
[2016-10-29 05:19] LABS: Basophils % 0.4 %
[2016-10-29 05:21] LABS: Hematocrit 22.4 % (37.5-50.1); Immature Granulocytes % 0.6 % (0-4); Lymphocytes # 0.8 K/mcL (0.6-4.6); Lymphocytes % 16.1 %; Mean Corpuscular HGB Conc 31.3 g/dL (31.6-35.5); Mean Corpuscular Hemoglobin 33.7 pg (28.0-33.3); Mean Corpuscular Volume 107.7 fL (83.0-100.0); Mean Platelet Volume 10.2 fL (9.4-12.4); Monocytes # 0.3 K/mcL (0.0-1.3); Neutrophils # 3.6 K/mcL (1.6-8.9); Red Blood Count 2.08 M/mcL (4.19-5.50); Segmented Neutrophils % 76.9 %
[2016-10-29 05:23] LABS: Platelet Count 97 K/mcL (140-400)
[2016-10-29 05:35] LABS: Calcium 7.4 mg/dL (8.6-10.8); Potassium 3.8 mEq/L (3.5-4.5)
[2016-10-29 05:47] LABS: Platelet Estimate Decreased (Normal)
[2016-10-29 05:48] LABS: Anisocytosis 1+ (Not Present)
[2016-10-29] MEDS ORDERED: *HR* Dextrose 50 % in Water (Syg) 50 ML SYRINGE ONE ×2 (05:52→12:34)
[2016-10-29] MEDS: *HR* Dextrose 50 % in Water (Syg) 50 ML SYRINGE IVP ONE ×2 (05:58→12:35)
[2016-10-29] MEDS: Pantoprazole 40 MG VIAL IVP SCH (06:08)
[2016-10-29] MEDS ORDERED: D10% in Water 500 ML IVC SCH ×2 (06:15→12:45)
[2016-10-29 06:45] LABS: Hemoglobin A1C 4.2 %
[2016-10-29] MEDS: Renal Vitamin 1 MG CAPSULE PO SCH (07:55)
[2016-10-29] MEDS: Finasteride 5 MG TABLET PO SCH (07:55)
[2016-10-29] MEDS ORDERED: MethylPREDNISolone 40 MG/ML VIAL IVP SCH (09:05)
--- NOTE | 2016-10-29 09:22 | General Surgery Progress Note ---
Date of Encounter: 10/29/16 Time of Encounter: 09:18 Subjective Narrative: Planned colonoscopy cancelled this AM after patient became hemodynamically unstable with severe hypotension and profound hypoglycemia. Discussed with Dr Vargas. RECOMMENDATIONS: transfuse 2 units PRBC due to current H&H 7.0/22.4 continue clear liquids with dietary supplements such as Ensure Clear defer colonoscopy until hemodynamically stable. Objective Vital Signs - Last 8 Hours Temp Pulse Resp BP Pulse Ox 10/29/16 07:18 97.6 F 77 16 85/47 100 10/29/16 04:45 97.6 F 81 24 91/50 95 10/29/16 02:44 86 80/49 Intake and Output 10/28/16 10/29/16 10/29/16 23:59 07:59 15:59 Intake Total 261 / 261 295 / 295 Balance 261 / 261 295 / 295 Intake: IV Fluids 121 / 121 95 / 95 0.9 % Sodium Chloride 250 121 / 121 ML @ 999 mls/hr IV ONCE PRN Rx#:[id number] Dextrose 5% 1,000 ML @ 60 95 / 95 mls/hr IVC .[id number] GIL Rx#:[id number] Oral 140 / 140 200 / 200 Other: Meal Dinner npo Percent of Meal Consumed 30% Stool Size Large Stool Consistency liquid Stool Color Brown # Bowel Movements 1 Weight 49.7 kg Blood Glucose* 55 18 Patient Weight 10/29/16 23:59 Weight 49.7 kg - Labs 10/29/16 04:35 10/29/16 04:35 Diabetes panel 10/29/16 10/29/16 Range/Units 04:35 06:25 Sodium 138 (136-145) mEq/L Potassium 3.8 (3.5-4.5) mEq/L Chloride 104 (98-109) mEq/L Carbon Dioxide 29 (19-29) mEq/L BUN 20 (8-26) mg/dL Creatinine 2.43 H (0.72-1.25) mg/dL Glucose 18 L* (70-99) mg/dL Hemoglobin A1c 4.2 ( - 5.6) % Calcium 7.4 L (8.6-10.8) mg/dL Calcium panel 10/29/16 Range/Units 04:35 Calcium 7.4 L (8.6-10.8) mg/dL Pituitary panel 10/29/16 Range/Units 04:35 Sodium 138 (136-145) mEq/L Potassium 3.8 (3.5-4.5) mEq/L Chloride 104 (98-109) mEq/L Carbon Dioxide 29 (19-29) mEq/L BUN 20 (8-26) mg/dL Creatinine 2.43 H (0.72-1.25) mg/dL Glucose 18 L* (70-99) mg/dL Calcium 7.4 L (8.6-10.8) mg/dL Adrenal panel 10/29/16 Range/Units 04:35 Sodium 138 (136-145) mEq/L Potassium 3.8 (3.5-4.5) mEq/L Chloride 104 (98-109) mEq/L Carbon Dioxide 29 (19-29) mEq/L BUN 20 (8-26) mg/dL Creatinine 2.43 H (0.72-1.25) mg/dL Glucose 18 L* (70-99) mg/dL Calcium 7.4 L (8.6-10.8) mg/dL - VTE Documentation of Mechanical Device: Graduated compression elastic hosiery Consult Discharge Plan - Plan Referrals: Neil Sapp Jr, MD [Primary Care Provider] - 11/04/16 1:30 pm (please follow up as schedule)
[2016-10-29] MEDS ORDERED: Norepinephrine 4 MG in D5% in Water 250 ML IVC SCH (10:30)
[2016-10-29] MEDS ORDERED: 0.9 % Sodium Chloride 1,000 ML ONE (10:43)
[2016-10-29] MEDS: Norepinephrine 4 MG in D5% in Water 250 ML IVC SCH ×3 (11:02→18:08)
[2016-10-29] MEDS: Furosemide 40 MG TABLET PO SCH ×2 (11:03→15:26)
[2016-10-29] MEDS: amLODIPine 5 MG TABLET PO SCH (11:03)
--- NOTE | 2016-10-29 11:26 | Procedure Note ---
Date of procedure: 10/29/16 Pre-op diagnosis: Hypotension Post-op diagnosis: same Procedure: Verbal consent was obtained from the . The procedure was considered emergent. The left femoral vein was surveyed using the ultrasound be suitable target. Left groin was cleaned and draped in usual sterile fashion. Using ultrasound guidance the introducer needle was passed into the left femoral vein. Dark red nonpulsatile blood flow was returned. The guidewire was passed to the introducer needle without resistance. I make an skin was made using a scalpel. The needle was removed, and the dilator was passed over the guidewire and the soft tissues were dilated. The catheter was then passed over the guidewire advanced into the femoral vein. The guidewire was removed intact. All 3 ports were tested and deemed to draw blood and flushed easily. The catheter sutured in place and a sterile dressing was applied. The patient tolerated the procedure well. There is no immediate competitions. Anesthesia: RAMESHA, local Surgeon: Mike Blue Estimated blood loss (cc): 5 IV fluids (cc): 15 Pathology: none sent Condition: critical Disposition: ICU
[2016-10-29] MEDS: FentaNYL (PF) 1,000 MCG in 0.9 % Sodium Chloride 80 ML IVC SCH ×2 (12:00→18:08)
[2016-10-29 12:26] LABS: ABG Base Excess -2.6 mEq/L (-2.0 to 3.0); ABG HCO3 27.9 mEQ/L (21-27); ABG Oxygen Saturation 81 % (95-98); ABG PO2 62 mmHg (85-104); ABG TCO2 30.7 mEq/L (20-26)
[2016-10-29 12:27] LABS: ABG PCO2 92 mmHg (35-45); ABG PH 7.09 pH Units (7.32-7.45); Blood Gas FiO2 100 %; Blood Gas Respiration Rate 18; Blood Gas VT 450 cc
[2016-10-29 12:52] LABS: Hemoglobin 7.8 g/dL (12.9-16.9); Nucleated Red Blood Cells 0.3 /100 WBC (0)
[2016-10-29 12:54] LABS: Basophils % 0.1 %; Eosinophils % 0.1 %; Hematocrit 25.3 % (37.5-50.1); Immature Granulocytes % 0.8 % (0-4); Immature Platelets 6.5 % (1.1-6.1); Lymphocytes # 0.4 K/mcL (0.6-4.6); Lymphocytes % 5.1 %; Mean Corpuscular HGB Conc 30.8 g/dL (31.6-35.5); Mean Corpuscular Hemoglobin 33.3 pg (28.0-33.3); Mean Corpuscular Volume 108.1 fL (83.0-100.0); Mean Platelet Volume 10.5 fL (9.4-12.4); Monocytes # 0.2 K/mcL (0.0-1.3); Monocytes % 3.2 %; Red Blood Count 2.34 M/mcL (4.19-5.50); Red Cell Distribution Width 18.6 % (11.5-14.5); Segmented Neutrophils % 90.7 %
[2016-10-29 12:57] LABS: Neutrophils # 6.4 K/mcL (1.6-8.9); Platelet Count 83 K/mcL (140-400)
[2016-10-29 12:58] LABS: Ionized Calcium 1.06 mmol/L (1.15-1.35)
--- NOTE | 2016-10-29 13:02 | Pulmonology Consult Note ---
<Mike Blue - Last Filed: 10/29/16 14:51> Date of Encounter: 10/29/16 Time of Encounter: 13:00 Assessment and Plan (1) Pulseless electrical activity Current Visit: Yes Status: Acute Likely related to respiratory acidosis and respiratory failure, as well as profound hypovolemia and anemia. ACLS was initiated and spontaneous return of circulation was obtained. Patient was intubated and transferred to the ICU with a strong pulse. We will continue to monitor. (2) Acute respiratory failure with hypoxia and hypercapnia Current Visit: Yes Status: Acute Likely related to underlying COPD as well as profound anemia and cardiac arrest. Patient is intubated and sedated. Initial ABG after intubation shows a profound respiratory acidosis with a pH of 7.09, PCO2 of 92. Vent settings will be adjusted accordingly. We will repeat ABG. Will initiate empiric antibiotics (3) Anemia Current Visit: No Status: Acute Patient will be transfused 2 units. Patient had missed several upper endoscopy which was unremarkable for the source of bleeding. At some point the patient will need a colonoscopy but this will be deferred until the patient is more medically stable. Dr. Caputo following Qualifiers: Anemia type: unspecified type Qualified Code(s): D64.9 - Anemia, unspecified (4) Hypoglycemia Current Visit: Yes Status: Acute Patient has been hypoglycemic for 24 hours, this point the cause is unknown. The patient is not receiving any exogenous insulin. Underlying shock including sepsis or hypovolemic shock could also be contributing. Patient has been initiated on a D10 drip, as needed D50 will be given. (5) ESRD on dialysis Current Visit: No Status: Chronic Nephrology is following. The patient had dialysis yesterday and experienced hypotension during dialysis, this is likely related to hypovolemia. We will correct hypovolemia and dialyze as necessary. (6) Chronic obstructive pulmonary disease Current Visit: Yes Status: Acute This does not appear to be in acute exacerbation. We will continue with DuoNeb' s. We will discontinue steroids. Qualifiers: COPD type: emphysema Emphysema type: unspecified Qualified Code(s): J43.9 - Emphysema, unspecified (7) DVT prophylaxis Current Visit: Yes Status: Acute We will hold off on pharmacologic DVT prophylaxis at this time given the concern for bleeding. We will use mechanical DVT prophylaxis. History of Present Illness Consult date: 10/29/16 Requesting physician: Duane Vargas Reason for consult: pleural effusion Chief complaint: Anemia History of present illness: Patient is a 71-year-old male with history of end-stage renal disease and anemia of chronic kidney disease who presented several days ago the hospital with anemia. On presentation the patient was found to have a hemoglobin of 6.4. Patient was initially transfused 1 unit. Patient was in the process of having workup including upper endoscopy which was negative for a source of bleeding. The plan was for colonoscopy today however this was deferred due to the patient's overall status declining. A rapid response was called overnight and then again this morning. During the rapid response is morning the patient lost pulse and ACLS was initiated. 3 cycles of CPR were administered and ACL protocol was followed and the patient had spontaneous return of circulation. The patient was intubated and transferred to the intensive care unit in critical condition. At the time my exam the patient is intubated and sedated but is awake and moving all 4 limbs spontaneously. He does not appear to be in any acute distress. Past Med Surg Social Fam HX - Past Medical History Medical history: COPD, GERD, hyperlipidemia, hypertension, kidney stones, renal disease, other Psychiatric history: no psych history - Past Surgical History Surgical History: orthopedic, other, transplant, other - Social History Smoking Status: Current every day smoker Packs per day: 1 Smokeless Tobacco Status: No Alcohol use: none Drug use: none - Family History Mother Living Status: Hx Family Cancer: Yes Father Living Status: Hx Family Cardiac Disorders: Yes Medications and Allergies Amlodipine Besylate 5 mg PO BID 01/10/16 [History] Aspirin [Adult Low Dose Aspirin EC] 81 mg PO Q48H 01/10/16 [History] Carvedilol 25 mg PO BID 01/10/16 [History] Citalopram Hydrobromide [Celexa] 40 mg PO DAILY 01/10/16 [History] Finasteride 5 mg PO DAILY 01/10/16 [History] Furosemide 80 mg PO BID 01/10/16 [History] Simvastatin 20 mg PO DAILY 01/10/16 [History] Tamsulosin HCl 0.4 mg PO DAILY 01/10/16 [History] Renal Vitamin [Renal Caps Softgel] 1 mg PO DAILY capsule 01/13/16 [Rx] Oxycodone HCl/Acetaminophen [Percocet 5-325 mg Tablet] 1 tab PO QID PRN #30 tablet 01/21/16 [Rx] Famotidine [Pepcid] 40 mg PO DAILY #30 tablet 02/12/16 [Rx] Albuterol Neb [Proventil Neb] 2.5 mg IH QID PRN 10/26/16 [History] Epoetin Brandon [Procrit] 10,000 unit SQ MOWEFR 10/26/16 [History] Ipratropium/Albuterol Neb [Duoneb] 3 ml IH Q6HR PRN 10/26/16 [History] Lactose-Reduced Food [Ensure Active Clear] 1 bottle PO TID 10/26/16 [History] Omeprazole [PriLOSEC] 20 mg PO BID 10/26/16 [History] LORazepam [Ativan] 0.5 mg PO TID PRN 10/27/16 [History] Potassium Chloride [Klor-Con 10] 10 meq PO DAILY 10/27/16 [History] Tiotropium [Spiriva] 18 mcg .ROUTE DAILY PRN 10/27/16 [History] Allergies No Known Allergies Allergy (Verified 10/26/16 18:37) ROS unobtainable: due to mental status All Systems: A 10-system review of systems was performed and is negative for pertinent findings except as documented above in the HPI. Physical Examination Vital Signs: Vital Signs, Last 4 Hours Temp Pulse Resp BP Pulse Ox 10/29/16 12:44 22 74/54 100 10/29/16 11:46 97.3 F L 79 22 83/63 100 10/29/16 11:14 96.5 F L 96 96 76/60 100 10/29/16 11:00 96.6 F L 80 24 75/58 100 10/29/16 10:30 96.5 F L 78 22 83/63 100 General appearance: no acute distress, other (Cachectic appearing) ENT: oropharynx dry Effort: normal Auscultation: bilateral: diminished breath sounds, rales Cardiovascular: regular rate and rhythm Gastrointestinal: hypoactive bowel sounds, soft, non-tender, non-distended Extremities: no cyanosis, no edema, no clubbing unable to assess due to mental status Ventilator Settings Ventilator Settings: Ventilator Settings, Last 8 Hours Ventilator Mode A/C Ventilator Mode A/C Ventilator Mode A/C Ventilator Mode A/C Ventilator Tidal Volume 450 Setting Ventilator Tidal Volume 450 Setting Ventilator Tidal Volume 450 Setting Ventilator Tidal Volume 450 Setting Ventilator Respiratory Rate 26 Setting Ventilator Respiratory Rate 18 Setting Ventilator Respiratory Rate 18 Setting Ventilator Respiratory Rate 18 Setting Actual Respiratory Rate 26 Actual Respiratory Rate 20 Actual Respiratory Rate 21 Actual Respiratory Rate 24 Positive End Expiratory 5 Pressure Positive End Expiratory 5 Pressure Positive End Expiratory 5 Pressure Positive End Expiratory 5 Pressure Peak Inspiratory Airway 26 Pressure Peak Inspiratory Airway 30 Pressure Results - Laboratory Findings CBC and BMP: 10/29/16 12:30 10/29/16 12:30 ABG ABG pH 7.09 pH Units (7.32-7.45) L* 10/29/16 11:50 ABG pCO2 92 mmHg (35-45) H* 10/29/16 11:50 ABG pO2 62 mmHg (85-104) L 10/29/16 11:50 ABG O2 Saturation 81 % (95-98) L 10/29/16 11:50 Abnormal lab findings: Abnormal lab results RBC 2.34 M/mcL (4.19-5.50) L 10/29/16 12:30 Hgb 7.8 g/dL (12.9-16.9) L 10/29/16 12:30 Hct 25.3 % (37.5-50.1) L 10/29/16 12:30 MCV 108.1 fL (83.0-100.0) H 10/29/16 12:30 MCHC 30.8 g/dL (31.6-35.5) L 10/29/16 12:30 RDW 18.6 % (11.5-14.5) H 10/29/16 12:30 Plt Count 83 K/mcL (140-400) L 10/29/16 12:30 Nucleated RBCs/100 WBC 0.3 /100 WBC (0) H 10/29/16 12:30 Platelet Estimate Decreased (Normal) L 10/29/16 04:35 Immature Plt Fraction 6.5 % (1.1-6.1) H 10/29/16 12:30 Hypochromasia Present (Not Present) A 10/26/16 17:38 Anisocytosis 1+ (Not Present) A 10/29/16 04:35 Macrocytosis Present (Not Present) A 10/27/16 00:22 ABG pH 7.09 pH Units (7.32-7.45) L* 10/29/16 11:50 ABG pCO2 92 mmHg (35-45) H* 10/29/16 11:50 ABG pO2 62 mmHg (85-104) L 10/29/16 11:50 ABG HCO3 27.9 mEQ/L (21-27) H 10/29/16 11:50 ABG Total CO2 30.7 mEq/L (20-26) H 10/29/16 11:50 ABG O2 Saturation 81 % (95-98) L 10/29/16 11:50 ABG Base Excess -2.6 mEq/L (-2.0 to 3.0) L 10/29/16 11:50 Creatinine 2.43 mg/dL (0.72-1.25) H 10/29/16 04:35 Est GFR ( Amer) 32 (> 60) L 10/29/16 04:35 Est GFR (Non-Af Amer) 26 (> 60) L 10/29/16 04:35 Glucose 18 mg/dL (70-99) L* 10/29/16 04:35 POC Glucose 37 (58-89) L* 10/29/16 12:33 Calcium 7.4 mg/dL (8.6-10.8) L 10/29/16 04:35 Ionized Calcium 1.06 mmol/L (1.15-1.35) L 10/29/16 12:30 Iron 22 mcg/dL (65-175) L 10/27/16 12:06 Transferrin 52 mg/dL (174-364) L 10/27/16 12:06 Serum Total Protein 5.6 g/dL (6.0-8.3) L 10/26/16 17:38 Albumin 1.9 g/dL (3.5-5.0) L 10/26/16 17:38 Globulin 3.7 g/dL (2.4-3.5) H 10/26/16 17:38 Albumin/Globulin Ratio 0.5 (1.1-2.2) L 10/26/16 17:38 - Microbiology Findings Microbiology Findings: Microbiology, Last 48 Hours 10/27/16 17:13 Helicobacter pylori Urease &Culture - Final Gastric Biopsy - Clinical Findings Intake & Output: Intake & Output 12/10/29/16 10/29/16 23:59 07:59 15:59 Intake Total 261 / 261 295 / 295 410 / 410 Balance 261 / 261 295 / 295 410 / 410 Weight 49.7 kg Consult Discharge Plan - Plan Referrals: Neil Sapp Jr, MD [Primary Care Provider] - 11/04/16 1:30 pm (please follow up as schedule) <Chiki York W - Last Filed: 10/29/16 18:12> All Systems: A 10-system review of systems was performed and is negative for pertinent findings except as documented above in the HPI. Physical Examination Vital Signs: Vital Signs, Last 4 Hours Temp Pulse Resp BP Pulse Ox 10/29/16 17:11 30 86/41 78 L 10/29/16 17:00 100 F H 85 30 107/50 90 L 10/29/16 16:00 100 F H 91 26 83/44 78 L 10/29/16 15:00 84 26 92/55 100 10/29/16 14:48 98.7 F 83 27 84/63 100 10/29/16 14:05 28 93/70 100 Ventilator Settings Ventilator Settings: Ventilator Settings, Last 8 Hours Ventilator Mode A/C Ventilator Mode A/C Ventilator Mode A/C Ventilator Mode A/C Ventilator Mode A/C Ventilator Mode A/C Ventilator Mode A/C Ventilator Mode A/C Ventilator Mode A/C Ventilator Mode A/C Ventilator Mode A/C Ventilator Mode A/C Ventilator Mode A/C Ventilator Mode A/C Ventilator Tidal Volume 380 Setting Ventilator Tidal Volume 380 Setting Ventilator Tidal Volume 450 Setting Ventilator Tidal Volume 450 Setting Ventilator Tidal Volume 450 Setting Ventilator Tidal Volume 450 Setting Ventilator Tidal Volume 500 Setting Ventilator Tidal Volume 450 Setting Ventilator Tidal Volume 450 Setting Ventilator Tidal Volume 450 Setting Ventilator Tidal Volume 450 Setting Ventilator Tidal Volume 450 Setting Ventilator Tidal Volume 450 Setting Ventilator Tidal Volume 450 Setting Ventilator Respiratory Rate 30 Setting Ventilator Respiratory Rate 30 Setting Ventilator Respiratory Rate 28 Setting Ventilator Respiratory Rate 26 Setting Ventilator Respiratory Rate 26 Setting Ventilator Respiratory Rate 26 Setting Ventilator Respiratory Rate 28 Setting Ventilator Respiratory Rate 26 Setting Ventilator Respiratory Rate 26 Setting Ventilator Respiratory Rate 26 Setting Ventilator Respiratory Rate 26 Setting Ventilator Respiratory Rate 18 Setting Ventilator Respiratory Rate 18 Setting Ventilator Respiratory Rate 18 Setting Actual Respiratory Rate 30 Actual Respiratory Rate 30 Actual Respiratory Rate 28 Actual Respiratory Rate 27 Actual Respiratory Rate 26 Actual Respiratory Rate 26 Actual Respiratory Rate 26 Actual Respiratory Rate 20 Actual Respiratory Rate 21 Actual Respiratory Rate 24 Positive End Expiratory 10 Pressure Positive End Expiratory 10 Pressure Positive End Expiratory 8 Pressure Positive End Expiratory 5 Pressure Positive End Expiratory 5 Pressure Positive End Expiratory 5 Pressure Positive End Expiratory 5 Pressure Positive End Expiratory 5 Pressure Positive End Expiratory 5 Pressure Positive End Expiratory 5 Pressure Positive End Expiratory 5 Pressure Positive End Expiratory 5 Pressure Positive End Expiratory 5 Pressure Positive End Expiratory 5 Pressure Peak Inspiratory Airway 45 Pressure Peak Inspiratory Airway 47 Pressure Peak Inspiratory Airway 45 Pressure Peak Inspiratory Airway 26 Pressure Peak Inspiratory Airway 26 Pressure Peak Inspiratory Airway 26 Pressure Peak Inspiratory Airway 30 Pressure Results - Laboratory Findings CBC and BMP: 10/29/16 12:30 10/29/16 12:30 ABG ABG pH 7.26 pH Units (7.32-7.45) L 10/29/16 16:20 ABG pCO2 55 mmHg (35-45) H 10/29/16 16:20 ABG pO2 40 mmHg (85-104) L* 10/29/16 16:20 ABG O2 Saturation 66 % (95-98) L 10/29/16 16:20 PT/INR, D-dimer PT 22.0 Seconds (9.4-12.1) H 10/29/16 12:30 Abnormal lab findings: Abnormal lab results RBC 2.34 M/mcL (4.19-5.50) L 10/29/16 12:30 Hgb 7.8 g/dL (12.9-16.9) L 10/29/16 12:30 Hct 25.3 % (37.5-50.1) L 10/29/16 12:30 MCV 108.1 fL (83.0-100.0) H 10/29/16 12:30 MCHC 30.8 g/dL (31.6-35.5) L 10/29/16 12:30 RDW 18.6 % (11.5-14.5) H 10/29/16 12:30 Plt Count 83 K/mcL (140-400) L 10/29/16 12:30 Lymphocytes # 0.4 K/mcL (0.6-4.6) L 10/29/16 12:30 Nucleated RBCs/100 WBC 0.3 /100 WBC (0) H 10/29/16 12:30 Platelet Estimate Decreased (Normal) L 10/29/16 12:30 Immature Plt Fraction 6.5 % (1.1-6.1) H 10/29/16 12:30 Hypochromasia Present (Not Present) A 10/26/16 17:38 Anisocytosis 1+ (Not Present) A 10/29/16 04:35 Macrocytosis Present (Not Present) A 10/27/16 00:22 PT 22.0 Seconds (9.4-12.1) H 10/29/16 12:30 ABG pH 7.26 pH Units (7.32-7.45) L 10/29/16 16:20 ABG pCO2 55 mmHg (35-45) H 10/29/16 16:20 ABG pO2 40 mmHg (85-104) L* 10/29/16 16:20 ABG Total CO2 26.4 mEq/L (20-26) H 10/29/16 16:20 ABG O2 Saturation 66 % (95-98) L 10/29/16 16:20 ABG Base Excess -2.7 mEq/L (-2.0 to 3.0) L 10/29/16 16:20 Creatinine 2.57 mg/dL (0.72-1.25) H 10/29/16 12:30 Est GFR ( Amer) 30 (> 60) L 10/29/16 12:30 Est GFR (Non-Af Amer) 25 (> 60) L 10/29/16 12:30 Glucose 34 mg/dL (70-99) L* 10/29/16 12:30 POC Glucose 135 (58-89) H 10/29/16 17:36 Lactic Acid 3.4 mmol/L (0.5-2.2) H 10/29/16 12:30 Calcium 7.0 mg/dL (8.6-10.8) L 10/29/16 12:30 Ionized Calcium 1.06 mmol/L (1.15-1.35) L 10/29/16 12:30 Phosphorus 4.9 mg/dL (2.3-4.7) H 10/29/16 12:30 Magnesium 1.1 mg/dL (1.6-2.6) L 10/29/16 12:30 Iron 22 mcg/dL (65-175) L 10/27/16 12:06 Transferrin 52 mg/dL (174-364) L 10/27/16 12:06 Serum Total Protein 4.0 g/dL (6.0-8.3) L D 10/29/16 12:30 Albumin 1.2 g/dL (3.5-5.0) L D 10/29/16 12:30 Albumin/Globulin Ratio 0.4 (1.1-2.2) L 10/29/16 12:30 - Microbiology Findings Microbiology Findings: Microbiology, Last 48 Hours 10/27/16 17:13 Helicobacter pylori Urease &Culture - Final Gastric Biopsy - Clinical Findings Intake & Output: Intake & Output 10/29/16 10/29/16 10/29/16 07:59 15:59 23:59 Intake Total 295 / 295 1021 / 1021 50 / 50 Output Total 0 / 0 Balance 295 / 295 1021 / 1021 50 / 50 Weight 49.7 kg - Attending Attestation I examined this patient and my medical decision-making was reviewed with the TEAR DOWN WORKER/PA/Advanced Practice Nurse/Resident Physician. I agree with the documented findings, disposition and treatment plan as described except to the extent set forth below. I spent 90 minutes of Critical Care time with this patient. It involved decision making of high complexity to assess, manipulate, and support vital organ system failure and/or to prevent further life threatening deterioration of the patient's condition. The time involved in the performance of separately reportable procedures was not counted toward critical care time. Patient seen and examined at bedside Labs, radiology, chart personally reviewed. Neuro: Intubated sedated now paralyzed. Status post cardiac arrest. noted to have spontaneous movement after arrest. cooling protocol not initiated s/t hemodynamic instability Pulm: Severe hypoxemic respiratory failure suspect development of ARDS. Patient now intubated sedated and paralyzed. High peak and plateau pressures despite low tidal volume ventilation strategy severe hypoxic and hypercarbic respiratory failure with worsening space fraction. Large right-sided pleural effusion status post thoracentesis without significant change. Vent adjusted multiple times to align with ARDS net recommendations including permissive acidosis Cards: Status post cardiac arrest non-ventricular with return of spontaneous circulation. Echo today showed reduced systolic ejection fraction dilated left atrium right atrium and right ventricle no pulmonary hypertension was noted. Remains in combination of cardiogenic and distributive shock lactate elevated multiple pressors have been added now on bicarbonate drip for acidosis. ECG after wrist without evidence of ST elevation troponin is initially within normal limits we asked that will continue to trend this FEN-GI: Nothing by mouth GI prophylaxis with PPI Renal: End-stage renal disease mixed respiratory and metabolic acidosis. May need CVVH depending on clinical course ID: Covered empirically with broad-spectrum antibiotics for possible sepsis. Cultures taken. Continue to trend lactate as above. Heme/Onc: DVT prophylaxis initiated. Has underlying acute anemia that was being worked up status post 2 units red blood cell transfusion continue to trend H&H every 6 hours monitor coags for development of DIC transfusion goal greater than 7 Endo: Severe hypoglycemia likely secondary to critical illness some concern for adrenal insufficiency started on stress dose steroids since on multiple pressors continue D10 drip Integ: Skin care per ICU protocol to prevent ulcers CODE: DNR DNA extremely grave prognosis family updated at bedside including and brother
[2016-10-29 13:06] LABS: Albumin/Globulin Ratio 0.4 (1.1-2.2); Bilirubin,Total 0.5 mg/dL (0.2-1.2); Globulin 2.8 g/dL (2.4-3.5); Magnesium 1.1 mg/dL (1.6-2.6); Phosphorous 4.9 mg/dL (2.3-4.7); Potassium 4.4 mEq/L (3.5-4.5)
--- NOTE | 2016-10-29 13:06 | Nephrology Progress Note ---
Date of Encounter: 10/29/16 Time of Encounter: 13:00 - Assessment and Plan (1) Chronic obstructive pulmonary disease Current Visit: Yes Status: Acute Pt went into acute on chr resp failure due to COPD, Anemia, CHF with ESRD and had t be intubated. Now stable pulm status on mechanical ventilation Qualifiers: COPD type: emphysema Emphysema type: unspecified Qualified Code(s): J43.9 - Emphysema, unspecified (2) ESRD on dialysis Current Visit: No Status: Chronic Had dialysis yesterday and even with less than a liter of fluid removal became hypotensive. No need for another dialysis now lynda since he is intubated and oxygenation is protected. Can tolerate transfusion without dialysis K is ok (3) Anemia Current Visit: Yes Status: Acute Getting 2 units of PRBC today which should bring up hgb. Had one unit yesterday. Cscope held for now. Dr. 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 He had about 850 cc fluid removed during dialysis but developed hypotension and short of breathtowards end of dialysis and it was terminated 20 mins before. Th morning he wasweak, quite short of breath even with o2 by nasal canula nd hgb dropped back to ~7.Pt later in the morning became more tachypneic and rapid response was called and then code called. He was intbated and transferred to ICU. Now intubated he got one unt of PRBC and another will be coming up shortly. He is sedaed and requiring small dose of Norepi for BP support but otherwise stable. Pressor support may be stopped after BP beomes better with another unit of blood K was lowish this morning, so 2 units of PRBC should not cause concer of hyperkalemia Cscope for anemia due to GI blood loss is held for now Objective - Vital Signs Vital signs: Vital Signs Temp Pulse Resp BP Pulse Ox 10/29/16 12:44 22 74/54 100 10/29/16 11:46 97.3 F L 79 22 83/63 100 10/29/16 11:14 96.5 F L 96 96 76/60 100 10/29/16 11:00 96.6 F L 80 24 75/58 100 10/29/16 10:30 96.5 F L 78 22 83/63 100 10/29/16 07:18 97.6 F 77 16 85/47 100 10/29/16 04:45 97.6 F 81 24 91/50 95 10/29/16 02:44 86 80/49 10/28/16 23:20 98.3 F 81 26 108/51 98 10/28/16 21:29 85 81/47 10/28/16 21:28 21 100 10/28/16 20:40 70/40 10/28/16 19:46 97.4 F L 81 18 94/50 97 10/28/16 16:58 98.0 F 106 21 110/62 94 L Intake and Output 10/28/16 10/29/16 10/29/16 23:59 07:59 15:59 Intake Total 261 / 261 295 / 295 410 / 410 Balance 261 / 261 295 / 295 410 / 410 Intake: IV Fluids 121 / 121 95 / 95 60 / 60 0.9 % Sodium Chloride 250 121 / 121 ML @ 999 mls/hr IV ONCE PR[facility] Rx#:[id number] Dextrose 5% 1,000 ML @ 60 95 / 95 mls/hr IVC .[id number] [facility] Rx#:[id number] Levophed 4 MG In Dextrose 60 / 60 5% 250 ML @ 0 MCG/MIN IVC CONT [facility] Rx#: [id number] Oral 140 / 140 200 / 200 Blood Product 350 / 350 Rbcs Leuko Poor As-1 350 / 350 Unit [id number] Other: Meal Dinner npo Percent of Meal Consumed 30% Stool Size Large Stool Consistency liquid Stool Color Brown # Bowel Movements 1 Weight 49.7 kg Blood Glucose* 55 18 63 Patient Weight 10/29/16 23:59 Weight 49.7 kg - General Appearance General appearance: Present: cachectic, severe distress, chronically ill, sedated on ventilator, intubated, fatigue, frail EENT: Present: ATNC, PERRL, mucous membranes dry, hearing intact, vision intact Neck: Present: no JVD, no thyromegaly, no carotid bruit Respiratory: Present: no kyphosis, no scoliosis, rhonchi Cardiology: Present: mid-systolic murmur, no rub, no gallops, no edema, regular rate, regular rhythm, normal S1, normal S2 thrill: Yes bruit: Yes Additional Comments: AV fistula on left arm good bruit Gastrointestinal: Present: normoactive bowel sounds, no tenderness, no guarding , no organomegaly, no masses Integumentary: Present: no rash, warm and dry Neurologic: Present: no focal deficit, obtunded Musculoskeletal: Present: no deformities, no erythema, no cyanosis, no clubbing Psychiatric: Present: mood/affect appropriate - Lab 10/29/16 12:30 10/29/16 04:35 Most recent lab results ABG pH 7.09 pH Units (7.32-7.45) L* 10/29/16 11:50 ABG pCO2 92 mmHg (35-45) H* 10/29/16 11:50 ABG pO2 62 mmHg (85-104) L 10/29/16 11:50 ABG HCO3 27.9 mEQ/L (21-27) H 10/29/16 11:50 ABG O2 Saturation 81 % (95-98) L 10/29/16 11:50 Calcium 7.4 mg/dL (8.6-10.8) L 10/29/16 04:35 - VTE Documentation of Mechanical Device: Graduated compression elastic hosiery Consult Discharge Plan - Plan Referrals: Neil Sapp Jr, MD [Primary Care Provider] - 11/04/16 1:30 pm (please follow up as schedule)
[2016-10-29 13:12] LABS: Albumin 1.2 g/dL (3.5-5.0)
[2016-10-29 13:19] LABS: ABG Base Excess -1.7 mEq/L (-2.0 to 3.0); ABG Oxygen Saturation 85 % (95-98); ABG PO2 63 mmHg (85-104); ABG TCO2 29.3 mEq/L (20-26)
[2016-10-29 13:23] LABS: ABG PCO2 74 mmHg (35-45); ABG PH 7.17 pH Units (7.32-7.45); Blood Gas FiO2 100 %
[2016-10-29 13:27] LABS: Platelet Estimate Decreased (Normal)
[2016-10-29] MEDS ORDERED: Vancomycin 750 MG in D5% in Water 250 ML IVPB SCH (14:00)
[2016-10-29] MEDS ORDERED: Vancomycin 750 MG in D5% in Water 250 ML IVPB ONE (15:00)
[2016-10-29] MEDS ORDERED: 0.9 % Sodium Chloride 500 ML ONE (15:10)
--- NOTE | 2016-10-29 15:18 | ECHO - Doppler Report ---
Echocardiogram Name: Magan Martinez Date of Study: 10/29/2016 Date: 1945 Ht: 68.0 in Medical Record#: [id number] Age: 71 Wt: 109.0 lb Gender: Male BSA: 1.58 Order #: [id number] Location: [facility] Room #: IC06 Reading Physician: Mike Coats MD, [facility] [place] Worker: Lanre Amaro Ordering Physician: Tennille Vargas MD Primary Physician: Neil Sapp MD Indications: Pleural effusion, Congestive heart failure Impressions: Mild-moderate LV systolic dysfunction, LVEF 40%. There is global LV hypokinesis. Moderate left ventricular diastolic dysfunction. Dilated right ventricle with mild-moderate right ventricular hypokinesis. Moderately dilated left atrium. Severely dilated right atrium. Mild mitral regurgitation. Mild tricuspid regurgitation. No evidence of pulmonary hypertension. A pleural effusion is noted. There is a linear echodensity consistent with a catheter noted in the IVC. Clinical correlation advised. Left Ventricular Wall Motion: Rest Echo Findings The apex, apical inferior, mid inferior, basal inferior, apical anterior, mid anterior, basal anterior, apical septal, mid inferior septal, basal inferior septal, apical lateral, mid anterior lateral, basal anterior lateral, mid anterior septal, mid inferior lateral, basal anterior septal and basal inferior lateral stewart were hypokinetic. Findings: Study Quality * Technically adequate exam. ECG Findings * Normal sinus rhythm. Left Ventricle * Mild-moderate LV systolic dysfunction, LVEF 40%. There is global LV hypokinesis. * Normal LV chamber size and wall thickness. * Moderate left ventricular diastolic dysfunction. Right Ventricle * Dilated right ventricle with mild-moderate right ventricular hypokinesis. Left Atrium * Moderately dilated left atrium. Right Atrium * Severely dilated right atrium. Aorta * Normally sized aortic root. Pericardium * There is a trivial pericardial effusion present. IVC * The IVC is not dilated. * There is a linear echodensity consistent with a catheter noted in the IVC. Clinical correlation advised. Pleural Effusion * A pleural effusion is noted. Aortic Valve * Trileaflet aortic valve. * Mildly thickened aortic valve leaflets. * No aortic stenosis. * Trace aortic regurgitation. Mitral Valve * Mildly thickened mitral valve leaflets. * No mitral stenosis. * Mild mitral regurgitation. Tricuspid Valve * Normal tricuspid valve structure. * No tricuspid stenosis. * Mild tricuspid regurgitation. * No evidence of pulmonary hypertension. Pulmonic Valve * Normal pulmonic valve structure. * No pulmonic regurgitation. * Trace pulmonic regurgitation. History Hypertension Hypercholesteremia History of Smoking Years 45 Packs 1 Congestive Heart Failure 01/11/16 a Previous Echo was performed. Measurements: BP: 94/ 64 2D Normal Values RVIDd: 4.10 cm IVSd: 1.00 cm 0.6 - 1.0 cm LVIDd: 4.60 cm 3.7 - 5.6 cm LVPWd: 1.00 cm 0.6 - 1.1 cm LVIDs: 3.70 cm 1.5 - 3.6 cm AO: 3.10 cm < 4.0 cm LA volume: 62 Mitral Valve Peak E:.90 m/sec Peak A:.46 m/sec E/A Ratio:1.9 Peak E' Lat Dylan:5.55 cm/s Peak E' Med Dylan:6.85 cm/s E/E' Lat Ratio:16.2 E/E' Med Ratio:13.1 Tricuspid Valve TV Regurg Peak Grad: 18.00mmHg TV Regurg Peak Dylan: 2.10m/sec Updated by Mike Coats MD, [facility] on 10/29/2016 3:09:02 PM electronically signed on 10/29/2016 3:13:22 PM with status of Final Wall Motion [place]: 1=Normal, 2=Hypokinesis, 3=Akinesis, 4=Dyskinesis, 5=Aneurysmal, 6=Hyperkinetic, X=Not Visualized (Blank)=Missing
[2016-10-29] MEDS: Hydrocortisone Sodium Succ 100 MG/2 ML VIAL IVP SCH ×2 (15:25→23:33)
[2016-10-29] MEDS ORDERED: Magnesium Sulfate 2 GM in D5% in Water 100 ML IVPB ONE (15:26)
[2016-10-29] MEDS ORDERED: *HR* Dextrose 50 % in Water (Syg) 50 ML SYRINGE IVP PRN (15:36)
[2016-10-29] MEDS ORDERED: Lacri-Lube 3.5 GM TUBE BOTH EYES SCH (15:45)
[2016-10-29] MEDS ORDERED: Lacri-Lube 3.5 GM TUBE BOTH EYES PRN (16:11)
--- NOTE | 2016-10-29 16:18 | Procedure Note ---
Date of procedure: 10/29/16 Pre-op diagnosis: hypotension Post-op diagnosis: same Procedure: Verbal consent was obtained from the . The right femoral artery was visualized during ultrasound. The right groin was cleaned and draped in usual sterile fashion. The introducer needle was passed under ultrasound guidance into the right femoral artery. Bright red blood was returned. The guidewire was passed through the needle and the needle was removed. The catheter was then passed over the guidewire and into the artery. The guidewire was removed intact. The pressure transducer bag was connected to the catheter and a good arterial waveform was returned. The catheter was then sutured in place. Dressing was applied. The patient tolerated the procedure well, there were no immediate consultations. Anesthesia: PEPE, local Surgeon: Mike Blue Estimated blood loss (cc): 5 IV fluids (cc): 0 Pathology: none sent Condition: critical Disposition: ICU
[2016-10-29] MEDS ORDERED: *HR* Midazolam HCl 5 MG/5 ML VIAL IVP ONE ×2 (16:19)
[2016-10-29] MEDS: EPINEPHrine 1 MG in D5% in Water 250 ML IVC SCH ×3 (16:30→21:09)
[2016-10-29 16:31] LABS: ABG Base Excess -2.7 mEq/L (-2.0 to 3.0); ABG HCO3 24.7 mEQ/L (21-27); ABG Oxygen Saturation 66 % (95-98); ABG PCO2 55 mmHg (35-45); ABG PH 7.26 pH Units (7.32-7.45); ABG TCO2 26.4 mEq/L (20-26)
[2016-10-29 16:33] LABS: ABG PO2 40 mmHg (85-104)
[2016-10-29 16:34] LABS: Blood Gas FiO2 100 %
[2016-10-29] MEDS ORDERED: Vecuronium 50 MG in 0.9 % Sodium Chloride 150 ML IVC SCH (16:45)
[2016-10-29] MEDS: Vasopressin 40 UNIT in D5% in Water 100 ML IV SCH (17:08)
--- NOTE | 2016-10-29 17:11 | Event Note ---
Date of Encounter: 10/29/16 Time of Encounter: 17:08 Patient has steadily deteriorated over course of the evening. Now with severe hypoxemic respiratory failure despite maximal Fio2. High PEEK pressures with large right effusion s/t 1L thoracentesis without change. Worsening respiratory acidosis. ECHO shows rEF with dilated LA RA and RV. "No pulm htn". Suspect developement of ARDS. Patient paralyzed to TOF increased sedation. Family notified given overall poor prognosis CODE STATUS changed to DNR Arrest. Anticipate patient will .
[2016-10-29] MEDS: Piperacillin/Tazobactam 3.375 GM in D5% in Water (Mini-Bag+) 100 ML IVPB SCH (17:17)
[2016-10-29] MEDS: Sodium Bicarbonate 150 MEQ in D5% in Water 1,000 ML IVC SCH (17:18)
--- NOTE | 2016-10-29 17:56 | Procedure Note ---
Date of procedure: 10/29/16 Pre-op diagnosis: Pleural Effusion Post-op diagnosis: same Procedure: Consent was obtained from the . Timeout was called prior to procedure. Patient had a large right-sided pleural effusion that was identified under ultrasound guidance. The right mid axillary region was prepped with chlorhexidine 2%. I used sterile technique including gown drape mask and hat. The area was given topical lidocaine 1%. A finder needle was used to locate pleural fluid. A small neck was made over the rib and a catheter over needle that was 8-Telugu was advanced into the pleural space under negative pressure fluid was aspirated and the catheter was advanced and the needle was removed. 1100 mL of serosanguineous fluid was removed. The fluid was sent for multiple studies which are pending. Chest x-ray is pending at this time there is no change in the in patient status directly after procedure. Anesthesia: regional, IV sedation (per ICU care ) Surgeon: Chiki York Estimated blood loss (cc): 3 (cc ) Pathology: other (pleural fluid sent for analysis) Condition: critical Disposition: no change
[2016-10-29 18:22] LABS: ABG Base Excess 1.4 mEq/L (-2.0 to 3.0); ABG HCO3 28.2 mEQ/L (21-27); ABG Oxygen Saturation 71 % (95-98); ABG PCO2 56 mmHg (35-45); ABG PH 7.31 pH Units (7.32-7.45); ABG TCO2 29.9 mEq/L (20-26)
[2016-10-29 18:26] LABS: ABG PO2 41 mmHg (85-104)
[2016-10-29 18:27] LABS: Blood Gas FiO2 100 %; Blood Gas Respiration Rate 30; Blood Gas VT 380 cc
[2016-10-29 18:42] LABS: Basophils % 0.4 %; Ionized Calcium 0.96 mmol/L (1.15-1.35); Lymphocytes % 5.4 %; Mean Corpuscular Volume 102.1 fL (83.0-100.0); Mean Platelet Volume 10.4 fL (9.4-12.4)
[2016-10-29 18:44] LABS: Hematocrit 29.3 % (37.5-50.1); Hemoglobin 9.4 g/dL (12.9-16.9); Immature Granulocytes % 1.5 % (0-4); Immature Platelets 5.1 % (1.1-6.1); Lymphocytes # 0.4 K/mcL (0.6-4.6); Mean Corpuscular HGB Conc 32.1 g/dL (31.6-35.5); Mean Corpuscular Hemoglobin 32.8 pg (28.0-33.3); Monocytes # 0.1 K/mcL (0.0-1.3); Monocytes % 1.5 %; Neutrophils # 6.1 K/mcL (1.6-8.9); Nucleated Red Blood Cells 0.4 /100 WBC (0); Red Blood Count 2.87 M/mcL (4.19-5.50); Segmented Neutrophils % 91.2 %
[2016-10-29 18:45] LABS: Platelet Count 92 K/mcL (140-400)
[2016-10-29 18:50] LABS: Albumin/Globulin Ratio 0.4 (1.1-2.2); Bilirubin,Total 0.6 mg/dL (0.2-1.2); Calcium 6.7 mg/dL (8.6-10.8); Globulin 2.7 g/dL (2.4-3.5); Magnesium 1.5 mg/dL (1.6-2.6); Phosphorous 2.8 mg/dL (2.3-4.7); Potassium 3.7 mEq/L (3.5-4.5); Total Protein 3.8 g/dL (6.0-8.3)
[2016-10-29 18:51] LABS: Albumin 1.1 g/dL (3.5-5.0)
[2016-10-29] MEDS: D10% in Water 500 ML IVC SCH (19:52)
[2016-10-29] MEDS: Lacri-Lube 3.5 GM TUBE BOTH EYES SCH ×2 (20:31→23:34)
[2016-10-29] MEDS: Chlorhexidine Rinse 15 ML MOUTHWASH MM SCH (20:31)
[2016-10-29] MEDS: Norepinephrine 8 MG in D5% in Water 250 ML IVC SCH (20:31)
[2016-10-29 21:25] LABS: ABG PCO2 63 mmHg (35-45); ABG PH 7.26 pH Units (7.32-7.45)
[2016-10-29 21:26] LABS: ABG HCO3 28.3 mEQ/L (21-27); ABG Oxygen Saturation 73 % (95-98); ABG TCO2 30.2 mEq/L (20-26); Blood Gas FiO2 100 %
[2016-10-29 21:27] LABS: ABG PO2 45 mmHg (85-104)
[2016-10-29 21:46] LABS: Appearance of Body Fluid Cloudy (Clear)
[2016-10-29 22:03] LABS: Volume of Body Fluid 55 mL
[2016-10-30] MEDS: EPINEPHrine 5 MG in D5% in Water 250 ML IVC SCH ×2 (00:23→08:27)
[2016-10-30] MEDS: Sodium Bicarbonate 150 MEQ in D5% in Water 1,000 ML IVC SCH ×2 (00:47→08:27)
[2016-10-30] MEDS: Norepinephrine 8 MG in D5% in Water 250 ML IVC SCH ×3 (01:13→10:55)
[2016-10-30] MEDS: Lacri-Lube 3.5 GM TUBE BOTH EYES SCH ×2 (03:49→08:28)
[2016-10-30 04:12] LABS: Hematocrit 30.4 % (37.5-50.1); Hemoglobin 9.9 g/dL (12.9-16.9); Immature Platelets 6.6 % (1.1-6.1); Mean Corpuscular HGB Conc 32.6 g/dL (31.6-35.5); Mean Corpuscular Hemoglobin 32.2 pg (28.0-33.3); Mean Platelet Volume 10.6 fL (9.4-12.4); Nucleated Red Blood Cells 0.6 /100 WBC (0); Red Blood Count 3.07 M/mcL (4.19-5.50); Red Cell Distribution Width 18.6 % (11.5-14.5)
[2016-10-30 04:14] LABS: Platelet Count 72 K/mcL (140-400)
[2016-10-30 04:19] LABS: INR 2.6; Prothrombin Time 28.4 Seconds (9.4-12.1)
[2016-10-30 04:42] LABS: Lymphocytes # 0.4 K/mcL (0.6-4.6); Neutrophils # 7.7 K/mcL (1.6-8.9)
[2016-10-30] MEDS: D10% in Water 500 ML IVC SCH (04:46)
[2016-10-30 04:47] LABS: Platelet Estimate Decreased (Normal)
[2016-10-30 04:48] LABS: Anisocytosis 1+ (Not Present); Basophilic Stippling 1+ (Not Present); Large Platelets Present (Not Present); Polychromasia 1+ (Not Present)
[2016-10-30 04:49] LABS: Macrocytosis Present (Not Present)
[2016-10-30 04:55] LABS: Albumin/Globulin Ratio 0.3 (1.1-2.2); Bilirubin,Total 0.5 mg/dL (0.2-1.2); Globulin 2.6 g/dL (2.4-3.5); Magnesium 1.4 mg/dL (1.6-2.6); Phosphorous 3.9 mg/dL (2.3-4.7)
[2016-10-30 05:04] LABS: Albumin 0.9 g/dL (3.5-5.0); Calcium 6.2 mg/dL (8.6-10.8); Potassium 3.6 mEq/L (3.5-4.5); Total Protein 3.5 g/dL (6.0-8.3)
[2016-10-30 05:17] LABS: ABG Base Excess 1.3 mEq/L (-2.0 to 3.0); ABG HCO3 29.6 mEQ/L (21-27); ABG Oxygen Saturation 78 % (95-98); ABG PCO2 69 mmHg (35-45); ABG PH 7.24 pH Units (7.32-7.45); ABG TCO2 31.7 mEq/L (20-26)
[2016-10-30 05:19] LABS: Blood Gas FiO2 100 %
[2016-10-30 05:20] LABS: ABG PO2 50 mmHg (85-104)
[2016-10-30] MEDS: Piperacillin/Tazobactam 3.375 GM in D5% in Water (Mini-Bag+) 100 ML IVPB SCH (05:47)
[2016-10-30] MEDS: Finasteride 5 MG TABLET PO SCH (08:28)
[2016-10-30] MEDS: Renal Vitamin 1 MG CAPSULE PO SCH (08:29)
[2016-10-30] MEDS ORDERED: Pantoprazole 40 MG VIAL IVP SCH (09:00)
[2016-10-30] MEDS: Hydrocortisone Sodium Succ 100 MG/2 ML VIAL IVP SCH (09:09)
[2016-10-30] MEDS: Chlorhexidine Rinse 15 ML MOUTHWASH MM SCH (09:09)
[2016-10-30] MEDS: Vasopressin 40 UNIT in D5% in Water 100 ML IV SCH (10:55)
--- NOTE | 2016-10-30 11:11 | Nephrology Progress Note ---
Date of Encounter: 10/30/16 Time of Encounter: 11:08 - Assessment and Plan (1) Chronic obstructive pulmonary disease Current Visit: Yes Status: Acute Pt went into acute on chr resp failure due to COPD, Anemia, CHF with ESRD and had to be intubated. Now onmax vent support ad max Pressor support with epi, norepi and vasopressin. Prognosis extremely poor Qualifiers: COPD type: emphysema Emphysema type: unspecified Qualified Code(s): J43.9 - Emphysema, unspecified (2) ESRD on dialysis Current Visit: No Status: Chronic Had dialysis Monday. Inview of total cardiopulmonary collapse requring max pressor support and vent support it is unlikely he will survive or tolerate dialysis K is ok. 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 Subjective Principal diagnosis: ESRD Anemia Interval history: Pt with ESRD had dialysis Monday and had one unit of blood. He had about 850 cc fluid removed during dialysis but developed hypotension and short of breathtowards end of dialysis and it was terminated 20 mins before. Yesterday he was weak, quite short of breath even with o2 by nasal canula nd hgb dropped back to ~7.Pt later in the morning became more tachypneic and rapid response was called and then code called. He was intubated and transferred to ICU. He got 2 unts of PRBC and kept on vent. But patient has steadily deteriorated over course of the night Now with severe hypoxemic respiratory failure despite maximal Fio2. High PEEK pressures with large right effusion s/t 1L thoracentesis without change. Worsening respiratory acidosis. ECHO shows rEF with dilated LA RA and RV. "No pulm htn". Suspect developement of ARDS. Patient paralyzed to TOF increased sedation. Family notified given overall poor prognosis CODE STATUS changed to DNR Arrest. Objective - Vital Signs Vital signs: Vital Signs Temp Pulse Resp BP Pulse Ox 10/30/16 11:00 98.2 F 88 26 100/46 10/30/16 09:55 88 26 100/47 10/30/16 09:38 26 10/30/16 09:00 92 26 101/48 10/30/16 08:26 26 79 L 10/30/16 08:00 92 26 105/50 10/30/16 07:43 93 10/30/16 07:00 98.8 F 93 26 100/46 10/30/16 06:17 26 102/46 78 L 10/30/16 06:00 85 26 96/45 10/30/16 05:00 86 26 110/48 10/30/16 04:24 26 107/47 82 L 10/30/16 04:00 98.5 F 85 26 107/47 10/30/16 03:00 86 26 103/46 82 L 10/30/16 02:21 26 106/47 82 L 10/30/16 02:00 84 26 105/47 82 L 10/30/16 01:00 85 26 106/48 82 L 10/30/16 00:15 26 82/42 82 L 10/30/16 00:00 98.5 F 83 26 100/45 85 L 10/29/16 23:00 84 26 106/48 87 L 10/29/16 22:19 26 110/48 87 L 10/29/16 22:00 83 26 109/48 87 L 10/29/16 21:00 83 26 116/48 90 L 10/29/16 20:14 90 L 10/29/16 20:00 98.7 F 81 26 125/52 91 L 10/29/16 19:57 26 126/51 90 L 10/29/16 19:00 79 26 121/52 90 L 10/29/16 18:35 26 86/41 87 L 10/29/16 18:00 78 30 87 L 10/29/16 17:11 30 86/41 78 L 10/29/16 17:00 100 F H 85 30 107/50 90 L 10/29/16 16:00 100 F H 91 26 83/44 78 L 10/29/16 15:00 84 26 92/55 100 10/29/16 14:48 98.7 F 83 27 84/63 100 10/29/16 14:05 28 93/70 100 10/29/16 14:00 83 27 93/70 100 10/29/16 13:54 97.3 F L 10/29/16 13:50 98.6 F 81 28 93/70 100 10/29/16 13:35 98.1 F 82 26 94/64 100 10/29/16 13:00 82 26 94/64 100 10/29/16 12:44 22 74/54 100 10/29/16 12:00 78 24 87/49 100 10/29/16 11:46 97.3 F L 79 22 83/63 100 10/29/16 11:14 96.5 F L 96 96 76/60 100 Intake and Output 10/29/16 10/30/16 10/30/16 23:59 07:59 15:59 Intake Total 1803 / 1803 1564 / 1564 1700 / 1700 Output Total 1000 / 1000 75 / 75 Balance 803 / 803 1489 / 1489 1700 / 1700 Intake: IV Fluids 1803 / 1803 1564 / 1564 1700 / 1700 Vasostrict 40 UNIT In 100 / 100 Dextrose 5% 100 ML @ 0.03 UNIT/MIN 4.59 mls/hr IV .[id number] [facility] Rx#: [id number] Dextrose 10% Water 500 Ml 200 / 200 103 / 103 Ivbag 500 ML @ 50 mls/hr IVC .Q10H [facility] Rx#: [id number] EPINEPHrine 5 MG In 502 / 502 250 / 250 Dextrose 5% 250 ML @ 0.1 MCG/KG/MIN 15.2 mls/hr IVC CONT [facility] Rx#: [id number] FentaNYL (PF) 1,000 MCG 93 / 93 In 0.9 % Sodium Chloride 80 ML @ 50 MCG/HR 5 mls/ hr IVC [facility] Rx#: [id number] Versed 50 MG In 0.9 % 19 / 19 Sodium Chloride 90 ML @ 2 MG/HR 4 mls/hr IVC CONT [facility] Rx#:[id number] Levophed 8 MG In Dextrose 254 / 254 516 / 516 250 / 250 5% 250 ML @ 0 MCG/MIN IVC CONT [facility] Rx#: [id number] Sodium Bicarbonate 150 300 / 300 850 / 850 1000 / 1000 MEQ In Dextrose 5% 1,000 ML @ 200 mls/hr IVC . Q5H45M [facility] Rx#:[id number] Norcuron 50 MG In 0.9 % 76 / 76 Sodium Chloride 150 ML @ 0.8 MCG/KG/MIN 9.54 mls/ hr IVC CONT [facility] Rx#: [id number] Magnesium Sulfate 2 GM In 104 / 104 Dextrose 5% 100 ML @ 100 mls/hr IVPB ONCE ONE Rx# :[id number] Zosyn 3.375 GM In 100 / 100 100 / 100 Dextrose 5% (Minibag+) 100 ML 100 ML @ 25 mls/hr IVPB Q12HR [facility] Rx#: [id number] Vancocin 750 MG In 250 / 250 Dextrose 5% 250 ML @ 250 mls/hr IVPB ONCE [facility] Rx#: [id number] Oral 0 / 0 0 / 0 Output: Urine 0 / 0 Emesis 0 / 0 Thoracentesis 1000 / 1000 Gastric Drainage 75 / 75 Other: Weight 53.9 kg Blood Glucose* 230 191 198 Patient Weight 10/30/16 23:59 Weight 53.9 kg - General Appearance General appearance: Present: cachectic, chronically ill, sedated on ventilator, fatigue, frail, comatose EENT: Present: ATNC, mucous membranes dry Neck: Present: no JVD, no thyromegaly, no carotid bruit Respiratory: Present: course breath sounds, rhonchi Cardiology: Present: no murmurs, no rub, no gallops, no edema, regular rate, regular rhythm, normal S1, normal S2 thrill: Yes bruit: Yes Additional Comments: Still good bruit Gastrointestinal: Present: hypoactive bowel sounds, no tenderness, no guarding, no organomegaly, no masses Integumentary: Present: no rash, warm and dry Neurologic: Present: no focal deficit, obtunded Musculoskeletal: Present: no deformities, no erythema, no cyanosis, no clubbing Psychiatric: Present: depressed - Lab 10/30/16 03:59 10/30/16 04:34 Most recent lab results ABG pH 7.24 pH Units (7.32-7.45) L 10/30/16 04:59 ABG pCO2 69 mmHg (35-45) H 10/30/16 04:59 ABG pO2 50 mmHg (85-104) L* 10/30/16 04:59 ABG HCO3 29.6 mEQ/L (21-27) H 10/30/16 04:59 ABG O2 Saturation 78 % (95-98) L 10/30/16 04:59 Calcium 6.2 mg/dL (8.6-10.8) L 10/30/16 04:34 Phosphorus 3.9 mg/dL (2.3-4.7) 10/30/16 04:34 Magnesium 1.4 mg/dL (1.6-2.6) L 10/30/16 04:34 - VTE Documentation of Mechanical Device: Graduated compression elastic hosiery Consult Discharge Plan - Plan Referrals: Neil Sapp Jr, MD [Primary Care Provider] - 11/04/16 1:30 pm (please follow up as schedule)
[2016-10-30 12:25] VITALS: BP 91/43
--- NOTE | 2016-10-30 13:14 | Pulmonology Progress Note ---
Date of Encounter: 10/30/16 Time of Encounter: 13:12 Assessment and Plan (1) Shock circulatory Current Visit: Yes Status: Acute I spent 50 minutes of Critical Care time with this patient including 20mintues with counseling family. It involved decision making of high complexity to assess, manipulate, and support vital organ system failure and/or to prevent further life threatening deterioration of the patient's condition. The time involved in the performance of separately reportable procedures was not counted toward critical care time. Neuro: Intubated sedated and paralyzed. Status post cardiac arrest. Hypothermia protocol not initiated s/t hemodynamic instability Pulm: Severe hypoxemic respiratory failure suspect development of ARDS now with severe Shunt physiology with concern for acute PFO. Continues to have High peak and plateau pressures despite low tidal volume ventilation strategy severe hypoxic and hypercarbic respiratory failure with worsening space fraction. Large right-sided pleural effusion status post thoracentesis without significant change. Pleural fluid studies show exudative lymphocytic predominant pH normal glucose low. Vent adjusted to align with ARDS net recommendations including permissive acidosis. Cards: Status post PEA cardiac arrest with return of spontaneous circulation. Echo shows reduced systolic ejection fraction dilated left atrium right atrium and right ventricle no pulmonary hypertension was noted. Remains in combination of cardiogenic and distributive shock lactate elevated multiple pressors have been added now on bicarbonate drip for acidosis. ECG after wrist without evidence of ST elevation. Remains on 3 vasopressors at high doses Levophed epinephrine and vasopressin to keep MAP greater than 60 FEN-GI: Nothing by mouth GI prophylaxis with PPI Renal: End-stage renal disease mixed respiratory and metabolic acidosis. ID: Covered empirically with broad-spectrum antibiotics for possible sepsis. Cultures taken. Continue to trend lactate as above. Heme/Onc: DVT prophylaxis initiated (scds). Blood loss anemia s/t Gi cause tranfuse for goal Hgb> 7 Endo: Severe hypoglycemia likely secondary to critical illness some concern for adrenal insufficiency started on stress dose steroids since on multiple pressors continue weaned off D10 gtt Integ: Skin care per ICU protocol to prevent ulcers CODE Status: I spoke with the family for more than 20 minutes at the bedside with ICU nurse Raf. Updated the HER-2 sons and wives and granddaughter. Explained that current situation not compatible with recovery given severity of circulatory shock and hypoxemia. and family are all very clear he would not want to continue in this current situation and decision to transition to comfort care was made. All questions of the family were answered the best of my ability I gave them my condolences and comforted them the best that I could. Pastoral care has been consulted. expressed some concern and frustration about early management of the patient with this hospitalization I answered her questions as I could provide at the with the number and contact information for patient advocate here at the hospital (2) Acute respiratory failure with hypoxia and hypercapnia Current Visit: Yes Status: Acute (3) Anemia Current Visit: Yes Status: Acute Qualifiers: Anemia type: iron deficiency Iron deficiency anemia type: chronic blood loss Qualified Code(s): D50.0 - Iron deficiency anemia secondary to blood loss (chronic) (4) Pulseless electrical activity Current Visit: Yes Status: Acute (5) Weight loss Current Visit: Yes Status: Acute (6) Anemia associated with acute blood loss Current Visit: No Status: Acute (7) Pleural effusion Current Visit: No Status: Acute (8) ESRD on dialysis Current Visit: No Status: Chronic Subjective Principal diagnosis: ESRD Anemia Interval history: Remained on full pressor support maxed out on 3 pressors severe hypoxemia continued overnight despite Ventolin. Adjustments low blood glucose on D10 drip which has been now weaned off remained on paralysis for hypoxemic respiratory failure with vecuronium Objective PUL Vital signs: Last Vital Signs Temp 98.2 F 10/30/16 11:00 Pulse 93 10/30/16 12:00 Resp 26 10/30/16 12:00 BP 91/43 10/30/16 12:00 Pulse Ox 79 L 10/30/16 08:26 General appearance: other (Intubated sedated paralyzed) Eyes: nonicteric Auscultation: bilateral: diminished breath sounds Cardiovascular: regular rate and rhythm Gastrointestinal: hypoactive bowel sounds, soft Integumentary: normal (Frail emaciated chronically ill-appearing) Extremities: no edema (Pulses palpable) Musculoskeletal: no deformities unable to assess due to mental status Ventilator Settings Ventilator Settings: Ventilator Settings, Last 8 Hours Ventilator Mode A/C Ventilator Mode A/C Ventilator Mode A/C Ventilator Mode A/C Ventilator Mode A/C Ventilator Mode A/C Ventilator Mode A/C Ventilator Mode A/C Ventilator Mode A/C Ventilator Mode A/C Ventilator Mode A/C Ventilator Mode A/C Ventilator Tidal Volume 370 Setting Ventilator Tidal Volume 370 Setting Ventilator Tidal Volume 370 Setting Ventilator Tidal Volume 370 Setting Ventilator Tidal Volume 370 Setting Ventilator Tidal Volume 370 Setting Ventilator Tidal Volume 370 Setting Ventilator Tidal Volume 370 Setting Ventilator Tidal Volume 370 Setting Ventilator Tidal Volume 370 Setting Ventilator Tidal Volume 370 Setting Ventilator Tidal Volume 370 Setting Ventilator Respiratory Rate 26 Setting Ventilator Respiratory Rate 26 Setting Ventilator Respiratory Rate 26 Setting Ventilator Respiratory Rate 26 Setting Ventilator Respiratory Rate 26 Setting Ventilator Respiratory Rate 26 Setting Ventilator Respiratory Rate 26 Setting Ventilator Respiratory Rate 26 Setting Ventilator Respiratory Rate 26 Setting Ventilator Respiratory Rate 26 Setting Ventilator Respiratory Rate 26 Setting Ventilator Respiratory Rate 26 Setting Actual Respiratory Rate 26 Actual Respiratory Rate 26 Actual Respiratory Rate 26 Actual Respiratory Rate 26 Actual Respiratory Rate 26 Actual Respiratory Rate 26 Actual Respiratory Rate 26 Actual Respiratory Rate 26 Actual Respiratory Rate 26 Actual Respiratory Rate 26 Actual Respiratory Rate 26 Positive End Expiratory 12 Pressure Positive End Expiratory 12 Pressure Positive End Expiratory 12 Pressure Positive End Expiratory 12 Pressure Positive End Expiratory 12 Pressure Positive End Expiratory 12 Pressure Positive End Expiratory 12 Pressure Positive End Expiratory 12 Pressure Positive End Expiratory 12 Pressure Positive End Expiratory 12 Pressure Positive End Expiratory 12 Pressure Positive End Expiratory 12 Pressure Peak Inspiratory Airway 41 Pressure Peak Inspiratory Airway 43 Pressure Peak Inspiratory Airway 42 Pressure Peak Inspiratory Airway 43 Pressure Peak Inspiratory Airway 43 Pressure Peak Inspiratory Airway 42 Pressure Peak Inspiratory Airway 42 Pressure Peak Inspiratory Airway 43 Pressure Peak Inspiratory Airway 41 Pressure Peak Inspiratory Airway 42 Pressure Peak Inspiratory Airway 41 Pressure Results - Laboratory Findings CBC and BMP: 10/30/16 03:59 10/30/16 04:34 ABG ABG pH 7.24 pH Units (7.32-7.45) L 10/30/16 04:59 ABG pCO2 69 mmHg (35-45) H 10/30/16 04:59 ABG pO2 50 mmHg (85-104) L* 10/30/16 04:59 ABG O2 Saturation 78 % (95-98) L 10/30/16 04:59 PT/INR, D-dimer PT 28.4 Seconds (9.4-12.1) H 10/30/16 03:59 Abnormal lab findings: Abnormal lab results RBC 3.07 M/mcL (4.19-5.50) L 10/30/16 03:59 Hgb 9.9 g/dL (12.9-16.9) L 10/30/16 03:59 Hct 30.4 % (37.5-50.1) L 10/30/16 03:59 RDW 18.6 % (11.5-14.5) H 10/30/16 03:59 Plt Count 72 K/mcL (140-400) L 10/30/16 03:59 Band Neutrophils % 22.0 % (0-4) H 10/30/16 03:59 Metamyelocytes % 8.0 % (0) H 10/30/16 03:59 Myelocytes % 2.0 % (0) H 10/30/16 03:59 Lymphocytes # 0.4 K/mcL (0.6-4.6) L 10/30/16 03:59 Nucleated RBCs/100 WBC 0.6 /100 WBC (0) H 10/30/16 03:59 Platelet Estimate Decreased (Normal) L 10/30/16 03:59 Large Platelets Present (Not Present) A 10/30/16 03:59 Immature Plt Fraction 6.6 % (1.1-6.1) H 10/30/16 03:59 Polychromasia 1+ (Not Present) A 10/30/16 03:59 Hypochromasia Present (Not Present) A 10/26/16 17:38 Basophilic Stippling 1+ (Not Present) A 10/30/16 03:59 Anisocytosis 1+ (Not Present) A 10/30/16 03:59 Macrocytosis Present (Not Present) A 10/30/16 03:59 PT 28.4 Seconds (9.4-12.1) H 10/30/16 03:59 ABG pH 7.24 pH Units (7.32-7.45) L 10/30/16 04:59 ABG pCO2 69 mmHg (35-45) H 10/30/16 04:59 ABG pO2 50 mmHg (85-104) L* 10/30/16 04:59 ABG HCO3 29.6 mEQ/L (21-27) H 10/30/16 04:59 ABG Total CO2 31.7 mEq/L (20-26) H 10/30/16 04:59 ABG O2 Saturation 78 % (95-98) L 10/30/16 04:59 Sodium 126 mEq/L (136-145) L 10/30/16 04:34 Chloride 92 mEq/L (98-109) L 10/30/16 04:34 BUN 29 mg/dL (8-26) H 10/30/16 04:34 Creatinine 2.75 mg/dL (0.72-1.25) H 10/30/16 04:34 Est GFR ( Amer) 28 (> 60) L 10/30/16 04:34 Est GFR (Non-Af Amer) 23 (> 60) L 10/30/16 04:34 Glucose 193 mg/dL (70-99) H 10/30/16 04:34 POC Glucose 198 (58-89) H 10/30/16 11:02 Calculated Osmolality 273 (280-300) L 10/30/16 04:34 Lactic Acid 4.3 mmol/L (0.5-2.2) H* 10/30/16 03:59 Calcium 6.2 mg/dL (8.6-10.8) L 10/30/16 04:34 Ionized Calcium 0.68 mmol/L (1.15-1.35) L 10/30/16 03:59 Magnesium 1.4 mg/dL (1.6-2.6) L 10/30/16 04:34 Iron 22 mcg/dL (65-175) L 10/27/16 12:06 Transferrin 52 mg/dL (174-364) L 10/27/16 12:06 AST 43 Units/L (5-34) H 10/30/16 04:34 Serum Total Protein 3.5 g/dL (6.0-8.3) L 10/30/16 04:34 Albumin 0.9 g/dL (3.5-5.0) L 10/30/16 04:34 Albumin/Globulin Ratio 0.3 (1.1-2.2) L 10/30/16 04:34 Fluid Appearance Cloudy (Clear) A 10/29/16 16:45 - Microbiology Findings Microbiology Findings: Microbiology, Last 48 Hours 10/29/16 16:45 Body Fluid Culture - Preliminary Pleural Fluid 10/27/16 17:13 Helicobacter pylori Urease &Culture - Final Gastric Biopsy - Clinical Findings Intake & Output: Intake & Output 10/29/16 10/30/16 10/30/16 23:59 07:59 15:59 Intake Total 1803 / 1803 1564 / 1564 1700 / 1700 Output Total 1000 / 1000 75 / 75 0 / 0 Balance 803 / 803 1489 / 1489 1700 / 1700 Weight 53.9 kg - VTE Documentation of Mechanical Device: Graduated compression elastic hosiery Consult Discharge Plan - Plan Referrals: Neil Sapp Jr, MD [Primary Care Provider] - 11/04/16 1:30 pm (please follow up as schedule)
[2016-10-30] MEDS ORDERED: Aminoglycoside Consult 1 EACH MC ONE (13:24)
--- NOTE | 2016-10-30 13:32 | Death Note ---
Discharge Sum: Summary - Date and Time Date of admission: 10/27/16 05:26 Date of : 10/30/16 Time of : 13:25 - Summary Details: Antonella giron was admitted for acute on chronic blood loss anemia thought secondary to GI bleed. History of end-stage renal disease on dialysis significant weight loss and malnutrition leading up to timing of admission. Patient received blood transfusion and developed respiratory distress and was treated initially with noninvasive positive pressure ventilation with some improvement status. Became hypotensive leading to cardiac arrest. Underwent 2 cycles of ACLS for PEA arrest. Transfer to the ICU clinical course deteriorated markedly with severe hypoxemic respiratory failure refractory to intervention and circulatory shock requiring 3 pressors family made a decision to make patient comfort care patient shortly after removal of slight sustaining interventions - Additional Data Confirmation of as documented by pronouncing clinician: no pulse, no respirations, no heart sounds, pupils fixed and dilated Family: at bedside Additional persons at bedside: health advisor Attending/PCP notified?: Yes Attending physician: Chiki York MD Was code activated?: No Autopsy requested?: No worker's compensation claims examiner notified?: No Organ bank notified?: No Advance directives: No Hospice patient?: No Discharge Sum: Diag - PCOD Probable Cause of : Cardiac arrest Discharge Sum: Prov - Provider Primary care physician: Neil Sapp Jr, MD Admitting clinician: Briseida Landeros ( ) Attending physician on admission: Duane Vargas Consults: 10/28/16 09:15 Consult to Dialysis [CONS] ONCE 10/28/16 13:08 Consult to Speech Therapy [CONS] Stat Comment: Evaluate, develop and implement POC Reason for Consult: Per Dr. Otero consult to eval swallowing. Time Notified: 13:09 Call Completed: Yes 10/29/16 10:56 Consult to Pulmonology [CONS] Routine Consulting Provider: [facility] [place] Reason for Consult: please evaluate and assist in managing this patient with h/o COPD and ESRD on HD for acute respiratory failure. thank you Call Completed: Yes Pronouncing clinician: Chiki York
--- NOTE | 2016-10-31 10:45 | Electrocardiograph Report ---
[facility] Test Date: 2016-10-29 Pat Name: Magan Martinez Department: 109 Room: 06 Gender: M Clinic Md Associate: ELLA : 1945 Requested By: Chiki York Order Number: [id number] Reading MD: Hiram Harden DO Measurements Intervals [place] Rate: 82 P: 81 [place]: 99 QRS: -25 QRSD: 106 T: 87 QT: 399 QTc: 438 Interpretive Statements Sinus rhythm Possible left ventricular hypertrophy Possible lateral infarction, age undetermined Electronically Signed On 10-31-16 10:45:25 EST by Hiram Harden DO
--- NOTE | 2016-10-31 14:10 | Electrocardiograph Report ---
[facility] Test Date: 2016-10-29 Pat Name: KIMMIE MARSHALL Department: 112 Room: 06 Gender: M Manager Media: : 1945 Requested By: Chiki York Order Number: [id number] Reading MD: Jake Valerio MD Measurements Intervals [place] Rate: 74 P: 64 DC: 156 QRS: -22 QRSD: 109 T: 87 QT: 417 QTc: 445 Interpretive Statements SINUS RHYTHM PROBABLE LATERAL MYOCARDIAL INFARCTION, PROBABLY OLD Electronically Signed On 10-31-16 14:09:28 EST by Jake Valerio MD
== END 2016-10-30 13:25 | disposition expired | DRG 811 ==
LOC: 2ANU 17:02 → EMEROO 17:02 → 2ANU 21:26 → ICNU 10-29 10:52
PROVIDERS: ADMIT Hospitalist; ATTEND Internal Medicine Hospice and Palliative Medicine
PROC: ENDOEBX (2016-10-27 15:35)